=== PATIENT | male | born 1975 | race Caucasian/White ===

== ENCOUNTER 2016-06-04 18:12 | Emergency (ER) | payer OTHER ==
--- NOTE | 2016-06-04 20:03 | ERNOTE ---
ENT HPI Date of Service: 06/04/16 Time Seen by Provider: 06/04/16 20:01 Source: patient Exam Limitations: no limitations - Immun/Allergies/Home Medications Immunizations: IMMUNIZATION HX Immunizations Up to Date Yes History of Influenza Vaccine No Hx Pneumococcal Vaccination No Allergies/Adverse Reactions: Allergies Allergy/AdvReac Type Severity Reaction Status Date / Time erythromycin base Allergy Hives Verified 02/09/15 14:38 Home Medications: HOME MEDICATIONS NK [No Home Medication] 06/04/16 [Last Taken Unknown] - History of Present Illness Narrative: PT C/O HOARSENESS AND SORE THROAT. Review of Systems - Review of Systems Constitutional: Present: See HPI ENT: Present: nose congestion, sore throat, other - HOARSNESS. Respiratory: Present: cough Cardiology: Present: no symptoms reported Gastrointestinal/Abdominal: Present: no symptoms reported Genitourinary: Present: no symptoms reported Musculoskeletal: Present: no symptoms reported Neurological: Present: no symptoms reported Psych: Present: no symptoms reported All Other Systems: All systems neg except as marked - Patient's Past Medical History Patient History - Medical: Chronic Pain, Other Patient History - Cardiac/Respiratory: Hypertension Patient History - Cancer: No Hx of Cancer Patient History - Surgical Procedures: Appendectomy, T & A Patient History - Other: None - Family History Mother Family History - Cardiac/Respiratory: COPD - Social History Living Situations: home Psych History: Hx of Depression Smoking Status: Current every day smoker Patient requests Smoking Cessation Consult: No Initiate information on Smoking Cessation: No Alcohol Use: heavy Drug Use: other - Immunizations Immunizations Up to Date: Yes Hx Pneumococcal Vaccination: No History of Influenza Vaccine: No Physical Exam - Physical Exam General Appearance: Present: wd/wn, alert, no apparent distress - MODERATELY ELEVATED BP WHILE HERE IN THE ER. Ears, Nose, Throat: Present: nasal congestion, pharyngeal erythema, other - + POST NASAL DRAIANGE. . Absent: pharyngeal swelling, tonsillar exudate, tonsillar swelling Neck: Present: normal inspection Respiratory: Present: no respiratory distress, normal breath sounds, no accessory muscle use Cardiovascular/Chest: Present: regular rate, rhythm, no murmur, normal peripheral pulses Skin Exam: Present: normal color ED Progress - Results and Orders Patient's Lab Results:: I have reviewed the patient's lab results. Results and Orders: STREP SCREEN IS NEG. - Vital Signs Patient's Vital Signs:: I have reviewed the patient's vital signs. Vital Signs: Vital Signs 06/04/16 18:34 Temperature 37.2 C Pulse Rate 103 H Respiratory 18 Rate Blood Pressure 138/95 O2 Sat by Pulse 97 Oximetry PT SAYS HE IS AWARE OF A HISTORY OF HYPERTENSION AND HAS MADE ARRANGEMENTS TO SEE A PCP. - Progress/Reassessment Chief Complaint: Sore Throat Departure Clinical Impression: Sore throat and laryngitis - Departure Disposition: Home self-care Condition: Good Instructions: Adenovirus, Pharyngitis, [id number], Smoking Cessation, Tips for Success, [id number] Additional Instructions: RECHECK WITH YOUR DOCTOR OR RETURN IF WORSE
--- OUTSIDE RECORDS SUMMARY | 2016-06-04 20:28 | XMS REPORT | Continuity of Care Document ---
:1975 Author Organization [facility] ([facility]) Address [address] [place] [address] Phone [phone] Care Team Providers Name Role Phone Unavailable Primary Care Provider Unavailable Source Comments This disclosure is being made pursuant to the Care Everywhere program, applicable federal and state laws, and may not contain all informaitonavailable regarding this patient.[facility] ([facility]) Active Allergies and Adverse Reactions Not on File Current Medications Not on file Active Problems Not on file Social History Tobacco Use Types Packs/Day Years Used Date Never Assessed Plan of Care Health Maintenance Due Date Last Done Comments Hepatitis B Vaccine (1 of 3 - Primary Series) 1975 Tdap Vaccine 1984 Lipid Disorder Screening 11/10/1991 MMR Vaccine 11/10/1991 Td Vaccine 11/10/1991 Influenza Vaccine: Seasonal (#1) 09/09/2015 Results from Last 3 Months Not on file
[2016-06-04 20:40] VITALS: BP 160/89
== END 2016-06-04 20:26 | disposition home or self-care (01) ==
LOC: ER 18:12
DX: J02.9 Acute pharyngitis, unspecified (principal); J04.0 Acute laryngitis; Z72.0 Tobacco use

== ENCOUNTER 2016-07-19 10:39 | Inpatient (IN) | payer MEDICAID ==
--- OUTSIDE RECORDS SUMMARY | 2016-07-19 11:39 | XMS REPORT | Continuity of Care Document ---
:1975 Author Organization [facility] ([facility]) Address [address] [place] [address] Phone [phone] Care Team Providers Name Role Phone [phone], Need To Check Primary Care Provider Unavailable Source Comments This disclosure is being made pursuant to the Care Everywhere program, applicable federal and state laws, and may not contain all informaitonavailable regarding this patient.[facility] ([facility]) Active Allergies and Adverse Reactions Not on File Current Medications Not on file Active Problems Not on file Social History Tobacco Use Types Packs/Day Years Used Date Never Assessed Plan of Care Date Type Specialty Providers Description 07/30/2016 Appointment Dentistry [place] Ambrose, RED Chief Comp: Patient [address] [place] [address] [phone] (Fax) Health Maintenance Due Date Last Done Comments Hepatitis B Vaccine (1 of 3 - Primary Series) 1975 Tdap Vaccine 1984 Lipid Disorder Screening 11/10/1991 MMR Vaccine 11/10/1991 Td Vaccine 11/10/1991 Influenza Vaccine: Seasonal (Season Ended) 2016 Results from Last 3 Months Not on file
[2016-07-19] MEDS ORDERED: NORMAL SALINE 1,000 ML IV ONE ×2 (11:43→14:48)
[2016-07-19] MEDS ORDERED: DIATRIZOATE MEGLU/DIATRIZO SOD 30 ML BTL ONE (11:51)
[2016-07-19] MEDS ORDERED: DIATRIZOATE MEGLU/DIATRIZO SOD 30 ML BTL PO ONE (11:56)
--- NOTE | 2016-07-19 11:56 | ERNOTE ---
GI Bleeding/Rectal Pain ER Date of Service: 07/19/16 Presenting Symptoms: rectal bleeding Time Seen by Provider: 07/19/16 11:33 Source: patient Exam Limitations: no limitations Immunizations: IMMUNIZATION HX Immunizations Up to Date No History of Influenza Vaccine No Hx Pneumococcal Vaccination No Allergies/Adverse Reactions: Allergies erythromycin base Allergy (Verified 07/19/16 10:50) Hives Home Medications: HOME MEDICATIONS Acetaminophen [Tylenol] 500 mg PO PRN 07/19/16 [Last Taken Unknown] Gabapentin 300 mg PO TID 07/19/16 [Last Taken Unknown] Hydrochlorothiazide [Hydrodiuril] 25 mg PO DAILY 07/19/16 [Last Taken Unknown] traMADol HCL [Ultram] 100 mg PO TID 07/19/16 [Last Taken 07/19/16] Narrative: 40-year-old male presents to the emergency room after having bloody stools at home. describes them as red stool with blood clots in it. Patient is complaining of severe abdominal pain with cramping at this time. Patient states this started yesterday Date (Duration): 07/19/16 Timing: constant Quality/Severity: Present: moderate Nausea/Vomiting: Present: blood Abdominal Pain: Present: diffuse Rectal Bleeding: Present: blood mixed with stool, bloody diarrhea Associated Symptoms: Reports: maroon stools Prior Treament: Reports: other - hx of hemorrhoids Review of Systems - Review of Systems Constitutional: Present: no symptoms reported EYE: Present: no symptoms reported ENT: Present: no symptoms reported Respiratory: Present: no symptoms reported Cardiology: Present: no symptoms reported Gastrointestinal/Abdominal: Present: See HPI, abdominal pain Genitourinary: Present: no symptoms reported Musculoskeletal: Present: no symptoms reported Skin: Present: no symptoms reported Neurological: Present: no symptoms reported Endocrine: Present: no symptoms reported Hematologic/Lymphatic: Present: no symptoms reported Psych: Present: no symptoms reported All Other Systems: All systems neg except as marked - Patient's Past Medical History Patient History - Medical: Chronic Pain, Other Patient History - Cardiac/Respiratory: Hypertension Patient History - Cancer: No Hx of Cancer Patient History - Surgical Procedures: Appendectomy, T & A Patient History - Other: None - Family History Mother Family History - Cardiac/Respiratory: COPD - Social History Living Situations: home Psych History: Hx of Depression Smoking Status: Current every day smoker Alcohol Use: none Drug Use: none, other - Immunizations Immunizations Up to Date: No Hx Pneumococcal Vaccination: No History of Influenza Vaccine: No Physical Exam - Physical Exam Narrative: mirian blood in stool. abdomen is tender all over, patient c/o cramping RLQ. he does NOT have his appendix. General Appearance: Present: wd/wn, alert, mild distress. Absent: lethargic Eye Exam: Normal inspection: bilateral Ears, Nose, Throat: Present: normal ENT inspection, normal pharynx Neck: Present: normal inspection, nontender Respiratory: Present: no respiratory distress, normal breath sounds, no accessory muscle use, chest nontender, lungs clear Cardiovascular/Chest: Present: regular rate, rhythm, no murmur, normal peripheral pulses Gastrointestinal/Abdominal: Present: normal bowel sounds, nondistended, tenderness Rectal Exam: Present: nontender, normal rectal tone, hemorrhoids Back Exam: Present: normal inspection, decreased range of motion Extremity Exam: Present: normal inspection, non-tender, normal range of motion, no edema Neurological Exam: Present: alert, oriented, normal mood/affect, no motor/ sensory deficits Skin Exam: Present: normal color, warm/dry Lymphatic Exam: Present: no adenopathy ED Progress - Vital Signs Patient's Vital Signs:: I have reviewed the patient's vital signs. Vital Signs: Vital Signs 07/19/16 10:40 Temperature 37.0 C Pulse Rate 127 H Respiratory 18 Rate Blood Pressure 168/108 O2 Sat by Pulse 95 Oximetry - EKG EKG: NSR EKG read: Reviewed by me EKG Comments: interp by ED Attending - CT/Ultrasound CT/Ultrasound Narrative: [facility] PATIENT RADIOLOGY STUDY REPORT Patient Patient Name:LORE GOULD Date: 1975 Sex: M Order Number: [id number] Unique Exam ID: [id number] Exam Requested: ABDPELW - CT Abdomen/Pelvis W/ Contrast Date Scheduled: Study Priority: Requesting Service: Requesting Physician: Houston Malik Reason for Exam: gi bleed Radiological Report : Exam Date: 07/19/2016 11:46 Ordering Physician: Houston Malik HISTORY/INDICATION: gi bleed Additional history from technologist: Gastrointestinal bleeding since 6: 00 PM last night. Nausea and vomiting. TECHNIQUE: Contrast enhanced CT images of the abdomen during portal venous phase obtained. Excretory phase images of the abdomen and pelvis were also obtained. Coronal reconstructions were also submitted. Oral contrast material was given. COMPARISON: None available. CT Abdomen/Pelvis W/ Contrast ABDOMEN: Lungs: Mild dependent atelectasis present. Visualized portions of the heart grossly unremarkable. Liver: Somewhat low density appearance of the liver parenchyma suspicious but not definitive for fatty infiltration. Clinical correlation is advised. No focal mass or intrahepatic ductal dilation. Grossly normal opacification of the portal vein. Gallbladder: The gallbladder appears to be grossly unremarkable. Noncalcified gallstones would be difficult to exclude, and an ultrasound of the gallbladder should be considered if there is a concern for cholecystitis or biliary colic. Pancreas: The pancreas appears to be normal in appearance. Spleen: The spleen is unremarkable. Adrenal glands: Unremarkable without focal finding. Kidneys: Normal appearance without focal mass or hydronephrosis. Aorta: Mild calcified atherosclerotic plaques noted. Diameter of the infrarenal segment at the level of the inferior mesenteric artery origin is 1.7 cm. Retroperitoneum: No pathologic size lymphadenopathy or mass within the retroperitoneum is seen. Stomach: Partially opacified stomach grossly unremarkable. There is likely ingested food debris within the stomach. Small bowel: Unremarkable, without signs of obstruction, bowel wall thickening, or mesenteric inflammatory changes. Colon: There is contiguous bowel wall thickening of the distal colon from the level of the splenic flexure all the way down to the rectum to include the descending and sigmoid colonic segments, with adjacent inflammatory changes, and mural enhancement. There is no evidence for pneumatosis or extraluminal air. The proximal colonic segments are not affected. Appendix is surgically absent. Abdominal wall: Unremarkable without focal mass or hernia. No evidence for intraperitoneal free air. PELVIS: There is diffuse urinary bladder wall thickening, which may be artifactual from nondistention but consider cystitis. There is no definite focal filling defect at the base of the bladder filled with contrast. No definite signs of pelvic lymphadenopathy or masses are noted. No evidence of free pelvic fluid noted. Bones: Osseous structures appear intact without obvious destructive changes. Degenerative changes of the spine noted. IMPRESSION: 1. Contiguous circumferential bowel wall thickening of the distal segments of the colon as discussed above from the splenic flexure down to the rectum. Differential diagnosis includes colitis to include infection versus inflammatory bowel disease. Also consider ischemic colitis. Superimposed colonic mass would be difficult to exclude. Consider further evaluation of the colon when the patient's acute symptoms have resolved. 2. No CT signs of perforation, abscess, or other complications. 3. Additional comments are as above. Electronically signed by Lucy Shankar M.D.. Approved by: Approval Date: 07-19-2016 Approval Time: 01:48 PM THIS REPORT WAS RECEIVED FROM THE [employer] SYSTEM - Progress/Reassessment Chief Complaint: Rectal Bleeding Plan - Plan Plan: After speaking with Corbin and he suggested the patient be admitted and he will see him tomorrow Departure Clinical Impression: GI bleeding Qualifiers: GI bleed type/associated pathology: unspecified gastrointestinal hemorrhage type Qualified Code(s): K92.2 - Gastrointestinal hemorrhage, unspecified - Departure Disposition: [facility] Condition: Fair
[2016-07-19 11:59] LABS: Urine Appearance Clear; Urine Bilirubin Negative (NEGATIVE); Urine Blood 25 /ul (NEGATIVE); Urine Color Yellow; Urine Ketone Negative (NEGATIVE); Urine Nitrite Negative (NEGATIVE); Urine Protein 15 mg/dL (NEGATIVE); Urine Specific Gravity 1.025 SP.GR. (1.005-1.030); Urine Urobilinogen Normal (NORMAL)
[2016-07-19 12:00] LABS: Urine Bacteria None Seen; Urine RBC 0-5 /hpf (0-5); Urine WBC None Seen /hpf (0-5)
[2016-07-19 12:05] LABS: Hemoglobin 16.3 gm/dL (13.5-18.0); Mean Cell Volume 84.6 fl (78-100); Mean Corpuscular Hgb Conc 35.4 g/dl (32-36); Mean Platelet Volume 10.5 fl (6.0-9.5); Neutrophil # 14.3 K/mm3 (1.3-6.0); Neutrophil % 83.4 % (42-75.0); Platelet Count 291 K/mm3 (150-450); Red Blood Count 5.44 M/mm3 (4.7-6.0); Red Cell Distribution Width 12.4 % (11.5-14.0); White Blood Count 17.2 K/mm3 (4.0-10.5)
[2016-07-19 12:17] LABS: Albumin * 3.6 gm/dl (3.4-5.0); Anion Gap 11.5 mmol/L (6.8-13.8); BUN/Creatinine Ratio 5.1 (9.0-21.6); Bilirubin, Total 0.5 mg/dL (0.0-1.1); Ca. Corrected For Albumin 9.9 mg/dL (8.4-10.2); Calcium * 9.9 mg/dL (7.9-10.9); Carbon Dioxide 34.4 mmol/L (24-32.6); Potassium 2.9 mmol/L (3.4-4.6); Total Protein 7.7 gm/dL (6.2-8.2)
[2016-07-19 12:19] LABS: Prothrombin Time (Patient) 10.7 Seconds (9.4-11.4)
[2016-07-19 12:20] LABS: INR 1.03 INR (0.90-1.10); Partial Thrombolplastin Time 28.9 Seconds (24-32)
[2016-07-19] MEDS: POTASSIUM CHLORIDE 100 ML IV SCH ×2 (13:11→17:46)
[2016-07-19] MEDS ORDERED: GABAPENTIN 100 MG CAPSULE PO ONE (14:35)
[2016-07-19] MEDS ORDERED: HYDROcodone/ACETAMINOPHEN 1 EACH TABLET ONE (14:45)
--- OUTSIDE RECORDS SUMMARY | 2016-07-19 14:46 | XMS REPORT | Continuity of Care Document ---
:1975 Author Organization [facility] ([facility]) Address [place] [address] Phone [phone] Care Team Providers Name Role Phone [phone], Need To Check Primary Care Provider Unavailable Source Comments This disclosure is being made pursuant to the Care Everywhere program, applicable federal and state laws, and may not contain all informaitonavailable regarding this patient.[facility] ([facility]) Active Allergies and Adverse Reactions Not on File Current Medications Not on file Active Problems Not on file Social History Tobacco Use Types Packs/Day Years Used Date Never Assessed Plan of Care Date Type Specialty Providers Description 07/30/2016 Appointment Dentistry [place] Ambrose, RED Chief Comp: Patient [address] [place] [address] [phone] (Fax) Health Maintenance Due Date Last Done Comments Hepatitis B Vaccine (1 of 3 - Primary Series) 1975 Tdap Vaccine 1984 Lipid Disorder Screening 11/10/1991 MMR Vaccine 11/10/1991 Td Vaccine 11/10/1991 Influenza Vaccine: Seasonal (Season Ended) 2016 Results from Last 3 Months Not on file
[2016-07-19] MEDS: HYDROcodone/ACETAMINOPHEN 1 EACH TABLET PO PRN ×2 (14:48→21:41)
[2016-07-19] MEDS ORDERED: GABAPENTIN 400 MG CAPSULE PO STA (14:50)
[2016-07-19] MEDS: POTASSIUM CHLORIDE 40 MEQ in DEXTROSE 5%-LACTATED RINGERS 1,000 ML IV SCH (15:39)
[2016-07-19] MEDS: metroNIDAZOLE 500 MG TABLET PO SCH ×2 (15:43→22:52)
[2016-07-19] MEDS: NICOTINE 21 MG PATC TD SCH (16:01)
[2016-07-19] MEDS ORDERED: GABAPENTIN 600 MG TABLET PO SCH (17:00)
[2016-07-19] MEDS: GABAPENTIN 400 MG CAPSULE PO SCH ×2 (18:47→21:41)
[2016-07-19] MEDS ORDERED: LORazepam 2 MG/ML DISP.SYRIN IV ONE (20:42)
[2016-07-19] MEDS ORDERED: MULTIVIT INFUSN,ADULT 4,VIT K 10 ML, THIAMINE HCL 100 MG in NORMAL SALINE 1,000 ML IV ONE (20:44)
[2016-07-19] MEDS ORDERED: LORazepam 2 MG/ML DISP.SYRIN IV PRN ×3 (20:44)
[2016-07-19] MEDS ORDERED: ENOXAPARIN SODIUM 40 MG/0.4 ML SYRG SC SCH (20:45)
[2016-07-19 21:06] LABS: Magnesium 1.8 mg/dL (1.2-2.8)
[2016-07-19] MEDS: MULTIVITAMINS 1 CAP CAPSULE PO SCH (21:38)
[2016-07-19] MEDS: THIAMINE HCL 100 MG TABLET PO SCH (21:38)
[2016-07-19] MEDS: FOLIC ACID 1 MG TABLET PO SCH (21:39)
[2016-07-19] MEDS: PANTOPRAZOLE SODIUM 40 MG in NORMAL SALINE 100 ML IV SCH (21:39)
[2016-07-19] MEDS: CIPROFLOXACIN HCL 500 MG TABLET PO SCH (21:40)
[2016-07-19 22:07] LABS: Cocaine Ur Negative (NEGATIVE); Urine Barbiturate Negative (NEGATIVE); Urine Benzodiazepines Negative (NEGATIVE); Urine Opiates Positive (NEGATIVE); Urine PCP Negative (NEGATIVE); Urine THC Negative (NEGATIVE)
--- NOTE | 2016-07-19 22:36 | HP ---
<Christelle Kenny - Last Filed: 07/19/16 23:39> Chief Complaint - Chief Complaint Date of Service: 07/19/16 Time of Service: 20:35 Chief Complaint: abdominal pain, rectal bleeding History of Present Illness: Artur is a 40 year old male patient of Dr. Merritt with a PMH of HTN who presented to the ER today with c/o abdominal pain and rectal bleeding. States that over the last 24 over he developed lower abdominal pain. no n/v. no fever. went to the bathroom today and, per pt, had a significantly large bowel movement that was very hard. No blood with hard, large bowel movement. After this bowel movement, pt developed diarrhea with bright red blood in the stool that contained clots. Patient also states he had one stool since admission that was black and tarry. Patient admits to 3-4 beers a day, last drink was 3-4 days ago per his recollection. Also with history chronic back pain for which he takes ultram 1 tab [address] of the abdomen / pelvis showed possible colitis with no abscess or perforation. Patient to be admitted for abdominal pain, GI bleed. Dr. Murphy has been consulted by ERP prior to admission. - Patient's Past Medical History Patient History - Medical: Chronic Pain, Other Patient History - Cardiac/Respiratory: Hypertension Patient History - Cancer: No Hx of Cancer Patient History - Surgical Procedures: Appendectomy, T & A Patient History - Other: None - Family History Mother Family History - Cardiac/Respiratory: COPD Father Family History - Medical: Family History - Cancer: Liver, Prostate - Social History Living Situations: home Abuse History: No History of abuse Psych History: Hx of Depression Smoking Status: Current every day smoker Have you smoked in the past 12 months: Yes Do you dip or chew tobacco: No Patient requests Smoking Cessation Consult: No Initiate information on Smoking Cessation: Yes Alcohol Use: heavy Drug Use: none, other - Immunizations Immunizations Up to Date: No Hx Pneumococcal Vaccination: No History of Influenza Vaccine: No Review Of Systems (GEN) - Review of Systems Generalized/Overall Review: Present: Malaise EENTM: Present: No Symptoms Reported Respiratory: Present: No Symptoms Reported Cardiac: Present: No Symptoms Reported Abdominal: Present: Abdominal Pain, Diarrhea, Bright blood from rectum Genitourinary: Present: No Symptoms Reported Musculoskeletal: Present: No Symptoms Reported Neurological: Present: No Symptoms Reported Skin: Present: No Symptoms Reported Endocrine: Present: No Symptoms Reported Misc: All systems neg except as marked Immunizations: IMMUNIZATION HX Immunizations Up to Date No History of Influenza Vaccine No Hx Pneumococcal Vaccination No Allergies/Adverse Reactions: Allergies Allergy/AdvReac Type Severity Reaction Status Date / Time erythromycin base Allergy Hives Verified 07/19/16 15:56 Home Medications: HOME MEDICATIONS Acetaminophen [Tylenol] 500 mg PO PRN 07/19/16 [Last Taken Unknown] Gabapentin 300 mg PO TID 07/19/16 [Last Taken Unknown] Hydrochlorothiazide [Hydrodiuril] 25 mg PO DAILY 07/19/16 [Last Taken Unknown] traMADol HCL [Ultram] 100 mg PO TID 07/19/16 [Last Taken 07/19/16] Exam - Exam Vital Signs: Vital Signs - Last Taken Temp 37.1 C 07/19/16 21:31 Pulse 93 07/19/16 21:31 Resp 16 07/19/16 21:31 BP 163/112 07/19/16 21:31 Pulse Ox 94 07/19/16 21:31 Constitutional: Present: Alert, Cooperative, No distress ENT Exam: Present: hearing grossly normal Eye Exam: bilateral eye: normal inspection Neck: Present: full range of motion, supple Back Exam: Present: no vertebral tenderness Breasts: Present: Exam deferred Respiratory: Present: chest non-tender, lungs clear, normal breath sounds, no respiratory distress Cardiovascular/Chest: Present: normal peripheral pulses, regular rate, rhythm, no chest tenderness Peripheral Pulses: dorsalis-pedis (R): 2+, dorsalis-pedis (L): 2+, radial (R): 2 +, radial (L): 2+ Abdomen: Present: soft, nondistended, tender, high pitched bowel sounds /Rectal: Present: Exam deferred Extremity: Present: non-tender, normal inspection Skin Exam: Present: normal color, warm/dry, no cyanosis Diagnostic Studies: Abnormal Lab Results 07/19/16 Range/Units 21:50 Urine Opiates Screen Positive H (NEGATIVE) Laboratory Results WBC 17.2 K/mm3 (4.0-10.5) H 07/19/16 11:53 RBC 5.44 M/mm3 (4.7-6.0) 07/19/16 11:53 Hgb 16.3 gm/dL (13.5-18.0) 07/19/16 11:53 Hct 46.0 % (42.0-52.0) 07/19/16 11:53 MCV 84.6 fl (78-100) 07/19/16 11:53 MCH 30.0 pg (27-31) 07/19/16 11:53 MCHC 35.4 g/dl (32-36) 07/19/16 11:53 RDW 12.4 % (11.5-14.0) 07/19/16 11:53 Plt Count 291 K/mm3 (150-450) 07/19/16 11:53 MPV 10.5 fl (6.0-9.5) H 07/19/16 11:53 Immature Gran % (Auto) 0.60 % (0.001-0.429) H 07/19/16 11:53 Immature Gran # (Auto) 0.10 K/mm3 (0.000-0.0310) H 07/19/16 11:53 Neutrophils % 83.4 % (42-75.0) H 07/19/16 11:53 Lymphocytes % 10.5 % (20-51) L 07/19/16 11:53 Monocytes % 5.1 % (0.0-9) 07/19/16 11:53 Eosinophils % 0.2 % (0.0-3.0) 07/19/16 11:53 Basophils % 0.2 % (0.0-1.0) 07/19/16 11:53 Nucleated RBC % 0.0 k/mm3 (0-1) 07/19/16 11:53 Neutrophils # 14.3 K/mm3 (1.3-6.0) H 07/19/16 11:53 Lymphocytes # 1.8 k/mm3 (1.5-3.5) 07/19/16 11:53 Monocytes # 0.9 k/mm3 (0.0-1.0) 07/19/16 11:53 Eosinophils # 0.0 k/mm3 (0.0-0.7) 07/19/16 11:53 Absolute Basophils 0.0 k/mm3 (0.0-0.1) 07/19/16 11:53 ESR 17 mm/hr (0-10) H 07/19/16 11:53 PT 10.7 Seconds (9.4-11.4) 07/19/16 11:53 INR (Anticoag Therapy) 1.03 INR (0.90-1.10) 07/19/16 11:53 PTT ([place]) 28.9 Seconds (24-32) 07/19/16 11:53 Sodium 140 mmol/L (132-142) 07/19/16 11:53 Plasma Sodium 141 mmol/L (130-142) 07/19/16 11:53 Potassium 2.9 mmol/L (3.4-4.6) L D 07/19/16 11:53 Chloride 97 mmol/L (97-106) 07/19/16 11:53 Carbon Dioxide 34.4 mmol/L (24-32.6) H 07/19/16 11:53 Anion Gap 11.5 mmol/L (6.8-13.8) 07/19/16 11:53 BUN 5 mg/dL (6-23) L 07/19/16 11:53 Creatinine 0.98 mg/dL (0.4-1.4) 07/19/16 11:53 Est GFR (Non-Af Amer) 89 mL/min (60-130) 07/19/16 11:53 BUN/Creatinine Ratio 5.1 (9.0-21.6) L 07/19/16 11:53 Random Glucose 142 mg/dL (70-110) H 07/19/16 11:53 Lactic Acid, Venous 1.5 mmol/L (0.4-1.9) 07/19/16 14:44 Calcium 9.9 mg/dL (7.9-10.9) 07/19/16 11:53 Calcium Adj for Albumin 9.9 mg/dL (8.4-10.2) 07/19/16 11:53 Magnesium 1.8 mg/dL (1.2-2.8) 07/19/16 12:37 Total Bilirubin 0.5 mg/dL (0.0-1.1) 07/19/16 11:53 AST 16 U/L (0-48) 07/19/16 11:53 ALT 20 U/L (19-67) 07/19/16 11:53 Alkaline Phosphatase 95 U/L (50-170) 07/19/16 11:53 C-Reactive Prot, Quant 3.4 mg/dL (0.0-0.9) H 07/19/16 11:53 Total Protein 7.7 gm/dL (6.2-8.2) 07/19/16 11:53 Albumin 3.6 gm/dl (3.4-5.0) 07/19/16 11:53 Procalcitonin 0.11 ng/mL (0.05-0.50) 07/19/16 11:53 Urine Color Yellow 07/19/16 11:36 Urine Appearance Clear 07/19/16 11:36 Urine pH 6.0 pH (5.0-7.0) 07/19/16 11:36 Ur Specific [place] 1.025 SP.GR. (1.005-1.030) 07/19/16 11:36 Urine Protein 15 mg/dL (NEGATIVE) H 07/19/16 11:36 Urine Glucose (UA) Negative mg/dL (NEGATIVE) 07/19/16 11:36 Urine Ketones Negative mg/dL (NEGATIVE) 07/19/16 11:36 Urine Blood 25 /ul (NEGATIVE) H 07/19/16 11:36 Urine Nitrate Negative (NEGATIVE) 07/19/16 11:36 Urine Bilirubin Negative mg/dl (NEGATIVE) 07/19/16 11:36 Prot Sulfosalicylic Acd 1+ mg/dL (0) 07/19/16 11:36 Urine Urobilinogen Normal EU/dl (NORMAL) 07/19/16 11:36 Ur Leukocyte Esterase Negative /ul (NEGATIVE) 07/19/16 11:36 Urine RBC 0-5 /hpf (0-5) 07/19/16 11:36 Urine WBC None seen /hpf (0-5) 07/19/16 11:36 Ur Epithelial Cells None seen /hpf (0-5) 07/19/16 11:36 Urine Bacteria None seen (NONE) 07/19/16 11:36 Urine Culture Comments No culture indicated 07/19/16 11:36 Stool Occult Blood Positive H 07/19/16 11:30 Stl C.difficile Tox A&B Negative (Negative) 07/19/16 Unknown Urine Opiates Screen Positive (NEGATIVE) H 07/19/16 21:50 Barbiturate Screen Negative (NEGATIVE) 07/19/16 21:50 Ur Phencyclidine Scrn Negative (NEGATIVE) 07/19/16 21:50 Urine Amphetamine Negative (NEGATIVE) 07/19/16 21:50 U Benzodiazepines Scrn Negative (NEGATIVE) 07/19/16 21:50 Urine Cocaine Screen Negative (NEGATIVE) 07/19/16 21:50 Urine Marijuana (THC) Negative (NEGATIVE) 07/19/16 21:50 Ethyl Alcohol Less than 3.0 mg/dL (0.0-10.0) 07/19/16 12:37 Blood Type O Positive 07/19/16 11:53 Antibody Screen Negative 07/19/16 11:53 Assessment/Plan - Narrative Narrative: GI bleed - patient states started as right red blood with clots but now states one episode of black tarry stool when admitted - NPO with ice chips - protonix iv q 12 hours - Dr. Bray has been consulted, appreciate his help. - further recommends per surgery - recheck hgb/hct - risk factors include chronic etoh and ultram use Abdominal pain - likely from GI bleed vs possible colitis seen on abdominal CT - Cipro 500 mg PO BID - Day #1 - Flagyl 500 mg PO TID - Day #1 - hemoccult positive etoh abuse - last drink, per pt, was 3-4 days ago - seizure precautions - etoh withdrawl protocol ordered. - banana bag ordered. Chronic back pain - stop ultram, norco ordered - increase gabapentin dose. Code status: DNR VTE: no pharmalogical due to gi bleed; scd's while in bed. GI Proph: protonix iv. - Assessment/Plan (1) Abdominal pain Problem: Acute QualifierTitle: Abdominal location: lower abdomen, unspecified Qualified Code(s): R10.30 - Lower abdominal pain, unspecified (2) GI bleed Problem: Acute QualifierTitle: GI bleed type/associated pathology: unspecified gastrointestinal hemorrhage type Qualified Code(s): K92.2 - Gastrointestinal hemorrhage, unspecified (3) HTN (hypertension) Problem: Chronic QualifierTitle: Hypertension type: essential hypertension Qualified Code( s): I10 - Essential (primary) hypertension (4) ETOH abuse Problem: Chronic (5) Chronic back pain Problem: Chronic <Mookie Grimm - Last Filed: 07/20/16 08:32> Immunizations: IMMUNIZATION HX Immunizations Up to Date No History of Influenza Vaccine No Hx Pneumococcal Vaccination No Exam - Exam Vital Signs: Vital Signs - Last Taken Temp 37.1 C 07/20/16 07:41 Pulse 83 07/20/16 07:41 Resp 16 07/20/16 07:41 BP 150/96 07/20/16 07:41 Pulse Ox 94 07/20/16 07:41 Diagnostic Studies: Abnormal Lab Results 07/19/16 07/19/16 07/20/16 Range/Units 21:50 23:55 05:45 WBC 15.4 H (4.0-10.5) K/mm3 Hct 41.1 L 40.7 L (42.0-52.0) % MPV 10.4 H (6.0-9.5) fl Immature Gran % (Auto) 0.50 H (0.001-0.429) % Immature Gran # (Auto) 0.08 H (0.000-0.0310) K/mm3 Lymphocytes % 16.6 L (20-51) % Neutrophils # 11.6 H (1.3-6.0) K/mm3 Monocytes # 1.1 H (0.0-1.0) k/mm3 Sodium (132-142) mmol/L Plasma Sodium (130-142) mmol/L Potassium (3.4-4.6) mmol/L BUN (6-23) mg/dL BUN/Creatinine Ratio (9.0-21.6) ALT (19-67) U/L Albumin (3.4-5.0) gm/dl Urine Opiates Screen Positive H (NEGATIVE) 07/20/16 Range/Units 05:45 WBC (4.0-10.5) K/mm3 Hct (42.0-52.0) % MPV (6.0-9.5) fl Immature Gran % (Auto) (0.001-0.429) % Immature Gran # (Auto) (0.000-0.0310) K/mm3 Lymphocytes % (20-51) % Neutrophils # (1.3-6.0) K/mm3 Monocytes # (0.0-1.0) k/mm3 Sodium 143 H (132-142) mmol/L Plasma Sodium 143 H (130-142) mmol/L Potassium 3.0 L (3.4-4.6) mmol/L BUN 4 L (6-23) mg/dL BUN/Creatinine Ratio 4.7 L (9.0-21.6) ALT 16 L (19-67) U/L Albumin 2.8 L (3.4-5.0) gm/dl Urine Opiates Screen (NEGATIVE) Laboratory Results WBC 15.4 K/mm3 (4.0-10.5) H 07/20/16 05:45 RBC 4.71 M/mm3 (4.7-6.0) 07/20/16 05:45 Hgb 14.1 gm/dL (13.5-18.0) 07/20/16 05:45 Hct 40.7 % (42.0-52.0) L 07/20/16 05:45 MCV 86.4 fl (78-100) 07/20/16 05:45 MCH 29.9 pg (27-31) 07/20/16 05:45 MCHC 34.6 g/dl (32-36) 07/20/16 05:45 RDW 12.4 % (11.5-14.0) 07/20/16 05:45 Plt Count 258 K/mm3 (150-450) 07/20/16 05:45 MPV 10.4 fl (6.0-9.5) H 07/20/16 05:45 Immature Gran % (Auto) 0.50 % (0.001-0.429) H 07/20/16 05:45 Immature Gran # (Auto) 0.08 K/mm3 (0.000-0.0310) H 07/20/16 05:45 Neutrophils % 75.0 % (42-75.0) 07/20/16 05:45 Lymphocytes % 16.6 % (20-51) L 07/20/16 05:45 Monocytes % 7.0 % (0.0-9) 07/20/16 05:45 Eosinophils % 0.6 % (0.0-3.0) 07/20/16 05:45 Basophils % 0.3 % (0.0-1.0) 07/20/16 05:45 Nucleated RBC % 0.0 k/mm3 (0-1) 07/20/16 05:45 Neutrophils # 11.6 K/mm3 (1.3-6.0) H 07/20/16 05:45 Lymphocytes # 2.6 k/mm3 (1.5-3.5) 07/20/16 05:45 Monocytes # 1.1 k/mm3 (0.0-1.0) H 07/20/16 05:45 Eosinophils # 0.1 k/mm3 (0.0-0.7) 07/20/16 05:45 Absolute Basophils 0.0 k/mm3 (0.0-0.1) 07/20/16 05:45 ESR 17 mm/hr (0-10) H 07/19/16 11:53 PT 10.7 Seconds (9.4-11.4) 07/19/16 11:53 INR (Anticoag Therapy) 1.03 INR (0.90-1.10) 07/19/16 11:53 PTT ([place]elley) 28.9 Seconds (24-32) 07/19/16 11:53 Sodium 143 mmol/L (132-142) H 07/20/16 05:45 Plasma Sodium 143 mmol/L (130-142) H 07/20/16 05:45 Potassium 3.0 mmol/L (3.4-4.6) L 07/20/16 05:45 Chloride 105 mmol/L (97-106) 07/20/16 05:45 Carbon Dioxide 31.6 mmol/L (24-32.6) 07/20/16 05:45 Anion Gap 9.4 mmol/L (6.8-13.8) 07/20/16 05:45 BUN 4 mg/dL (6-23) L 07/20/16 05:45 Creatinine 0.85 mg/dL (0.4-1.4) 07/20/16 05:45 Est GFR (Non-Af Amer) 105 mL/min (60-130) 07/20/16 05:45 BUN/Creatinine Ratio 4.7 (9.0-21.6) L 07/20/16 05:45 Random Glucose 108 mg/dL (70-110) 07/20/16 05:45 Lactic Acid, Venous 1.5 mmol/L (0.4-1.9) 07/19/16 14:44 Calcium 8.9 mg/dL (7.9-10.9) 07/20/16 05:45 Calcium Adj for Albumin 9.5 mg/dL (8.4-10.2) 07/20/16 05:45 Magnesium 1.8 mg/dL (1.2-2.8) 07/19/16 12:37 Total Bilirubin 0.5 mg/dL (0.0-1.1) 07/20/16 05:45 AST 19 U/L (0-48) 07/20/16 05:45 ALT 16 U/L (19-67) L 07/20/16 05:45 Alkaline Phosphatase 72 U/L (50-170) 07/20/16 05:45 C-Reactive Prot, Quant 3.4 mg/dL (0.0-0.9) H 07/19/16 11:53 Total Protein 6.2 gm/dL (6.2-8.2) 07/20/16 05:45 Albumin 2.8 gm/dl (3.4-5.0) L 07/20/16 05:45 Procalcitonin 0.11 ng/mL (0.05-0.50) 07/19/16 11:53 Urine Color Yellow 07/19/16 11:36 Urine Appearance Clear 07/19/16 11:36 Urine pH 6.0 pH (5.0-7.0) 07/19/16 11:36 Ur Specific [place] 1.025 SP.GR. (1.005-1.030) 07/19/16 11:36 Urine Protein 15 mg/dL (NEGATIVE) H 07/19/16 11:36 Urine Glucose (UA) Negative mg/dL (NEGATIVE) 07/19/16 11:36 Urine Ketones Negative mg/dL (NEGATIVE) 07/19/16 11:36 Urine Blood 25 /ul (NEGATIVE) H 07/19/16 11:36 Urine Nitrate Negative (NEGATIVE) 07/19/16 11:36 Urine Bilirubin Negative mg/dl (NEGATIVE) 07/19/16 11:36 Prot Sulfosalicylic Acd 1+ mg/dL (0) 07/19/16 11:36 Urine Urobilinogen Normal EU/dl (NORMAL) 07/19/16 11:36 Ur Leukocyte Esterase Negative /ul (NEGATIVE) 07/19/16 11:36 Urine RBC 0-5 /hpf (0-5) 07/19/16 11:36 Urine WBC None seen /hpf (0-5) 07/19/16 11:36 Ur Epithelial Cells None seen /hpf (0-5) 07/19/16 11:36 Urine Bacteria None seen (NONE) 07/19/16 11:36 Urine Culture Comments No culture indicated 07/19/16 11:36 Stool Occult Blood Positive H 07/19/16 11:30 Stl C.difficile Tox A&B Negative (Negative) 07/19/16 Unknown Urine Opiates Screen Positive (NEGATIVE) H 07/19/16 21:50 Barbiturate Screen Negative (NEGATIVE) 07/19/16 21:50 Ur Phencyclidine Scrn Negative (NEGATIVE) 07/19/16 21:50 Urine Amphetamine Negative (NEGATIVE) 07/19/16 21:50 U Benzodiazepines Scrn Negative (NEGATIVE) 07/19/16 21:50 Urine Cocaine Screen Negative (NEGATIVE) 07/19/16 21:50 Urine Marijuana (THC) Negative (NEGATIVE) 07/19/16 21:50 Ethyl Alcohol Less than 3.0 mg/dL (0.0-10.0) 07/19/16 12:37 Blood Type O Positive 07/19/16 11:53 Antibody Screen Negative 07/19/16 11:53 Assessment/Plan - Narrative Narrative: There are a variety of possible etieologies for his gi bleeding, including his alcohol use or his ultram. He feels somewhat better today. There are NO contraindications to colonoscopy with biopsy. I directly supervised our nurse practitioner hospitalist care for this patient.
[2016-07-19 23:59] LABS: Hematocrit 41.1 % (42.0-52.0); Hemoglobin 14.4 gm/dL (13.5-18.0)
[2016-07-20] MEDS: HYDROcodone/ACETAMINOPHEN 1 EACH TABLET PO PRN ×3 (03:42→19:04)
[2016-07-20 05:57] LABS: Hematocrit 40.7 % (42.0-52.0); Hemoglobin 14.1 gm/dL (13.5-18.0); Mean Cell Volume 86.4 fl (78-100); Mean Corpuscular Hemoglobin 29.9 pg (27-31); Mean Corpuscular Hgb Conc 34.6 g/dl (32-36); Mean Platelet Volume 10.4 fl (6.0-9.5); Neutrophil # 11.6 K/mm3 (1.3-6.0); Platelet Count 258 K/mm3 (150-450); Red Blood Count 4.71 M/mm3 (4.7-6.0); Red Cell Distribution Width 12.4 % (11.5-14.0); White Blood Count 15.4 K/mm3 (4.0-10.5)
[2016-07-20 06:13] LABS: Albumin * 2.8 gm/dl (3.4-5.0); Anion Gap 9.4 mmol/L (6.8-13.8); BUN/Creatinine Ratio 4.7 (9.0-21.6); Bilirubin, Total 0.5 mg/dL (0.0-1.1); Ca. Corrected For Albumin 9.5 mg/dL (8.4-10.2); Calcium * 8.9 mg/dL (7.9-10.9); Carbon Dioxide 31.6 mmol/L (24-32.6); Total Protein 6.2 gm/dL (6.2-8.2)
[2016-07-20] MEDS: POTASSIUM CHLORIDE 40 MEQ in DEXTROSE 5%-LACTATED RINGERS 1,000 ML IV SCH ×4 (06:37→21:51)
[2016-07-20] MEDS: ACETAMINOPHEN 325 MG TABLET PO PRN ×3 (07:42→21:14)
[2016-07-20] MEDS: metroNIDAZOLE 500 MG TABLET PO SCH ×3 (07:43→22:55)
[2016-07-20] MEDS: POTASSIUM CHLORIDE 20 MEQ TABLET.SA PO SCH ×2 (09:41→21:15)
[2016-07-20] MEDS: FOLIC ACID 1 MG TABLET PO SCH (09:41)
[2016-07-20] MEDS: MULTIVITAMINS 1 CAP CAPSULE PO SCH (09:41)
[2016-07-20] MEDS: MAGNESIUM OXIDE 400 MG TABLET PO SCH (09:41)
[2016-07-20] MEDS: GABAPENTIN 400 MG CAPSULE PO SCH ×4 (09:41→21:13)
[2016-07-20] MEDS: CIPROFLOXACIN HCL 500 MG TABLET PO SCH ×2 (09:41→21:15)
[2016-07-20] MEDS: THIAMINE HCL 100 MG TABLET PO SCH (09:42)
[2016-07-20] MEDS: PANTOPRAZOLE SODIUM 40 MG in NORMAL SALINE 100 ML IV SCH ×2 (10:50→21:13)
--- NOTE | 2016-07-20 11:55 | CONS ---
HPI - General Source: patient, RN/MD, old records - History of Present Illness Initial Comments: Pt presented yesterday with c/o bloody bowel movements and lower abdominal pain. He continues to have bloody bowel movements today. WBC is elevated. CT shows bowel thickening from rectum to splenic flexure. He continues to have lower abdominal pain, mostly in the LLQ. Allergies/Adverse Reactions: Allergies erythromycin base Allergy (Verified 07/19/16 15:56) Hives Home Medications: Home Medications Medication Instructions Recorded Last Taken Acetaminophen [Tylenol] 500 mg PO PRN 07/19/16 Unknown Gabapentin 300 mg PO TID 07/19/16 Unknown Hydrochlorothiazide [Hydrodiuril] 25 mg PO DAILY 07/19/16 Unknown traMADol HCL [Ultram] 100 mg PO TID 07/19/16 07/19/16 - Patient's Past Medical History Patient History - Medical: Chronic Pain, Other Patient History - Cardiac/Respiratory: Hypertension Patient History - Cancer: No Hx of Cancer Patient History - Surgical Procedures: Appendectomy, T & A Patient History - Other: None - Family History Mother Family History - Cardiac/Respiratory: COPD Father Family History - Medical: Family History - Cancer: Liver, Prostate - Social History Living Situations: home Abuse History: No History of abuse Psych History: Hx of Depression Smoking Status: Current every day smoker Have you smoked in the past 12 months: Yes Do you dip or chew tobacco: No Patient requests Smoking Cessation Consult: No Initiate information on Smoking Cessation: Yes Alcohol Use: heavy Drug Use: none, other - Immunizations Immunizations Up to Date: No Hx Pneumococcal Vaccination: No History of Influenza Vaccine: No Procedures CLOSURE SKIN & SUBCUTANEOUS NEC (10/10/01) Medications - Medications Current Medications: Current Medications Acetaminophen (Tylenol) 650 mg PO QID PRN PRN Reason: Mild Pain Stop: 08/19/16 07:24 Last Admin: 07/20/16 07:42 Dose: 650 mg Acetaminophen/Hydrocodone Bitart ([place] 5-325) 2 each PO QID PRN PRN Reason: Pain Stop: 08/18/16 14:36 Last Admin: 07/20/16 10:49 Dose: 2 each Ciprofloxacin (Cipro) 500 mg PO BID CITLALI PRN Reason: Protocol Stop: 08/18/16 21:01 Last Admin: 07/20/16 09:41 Dose: 500 mg Folic Acid (Folic Acid) 1 mg PO DAILY [facility] Stop: 08/18/16 20:46 Last Admin: 07/20/16 09:41 Dose: 1 mg Gabapentin (Neurontin) 800 mg PO QID [facility] Stop: 08/18/16 17:01 Last Admin: 07/20/16 09:41 Dose: 800 mg Potassium Chloride 40 meq/ (Dextrose/Lactated Ringer's) 1,020 mls @ 150 mls/hr IV .Q6H48M [facility] Stop: 08/18/16 15:16 Last Admin: 07/20/16 10:52 Dose: Not Given Pantoprazole Sodium 40 mg/ (Sodium Chloride) 100 mls @ 400 mls/hr IV Q12H [facility] Stop: 08/18/16 20:46 Last Admin: 07/20/16 10:50 Dose: 400 mls/hr Magnesium Oxide (Mag-Ox 400) 400 mg PO DAILY [facility] Stop: 08/19/16 09:01 Last Admin: 07/20/16 09:41 Dose: 400 mg Metronidazole (Flagyl) 500 mg PO Q8H [facility] PRN Reason: Protocol Stop: 08/18/16 15:16 Last Admin: 07/20/16 07:43 Dose: 500 mg Nicotine (Nicoderm) 21 mg TD Q24H [facility] Stop: 08/18/16 16:01 Last Admin: 07/19/16 16:01 Dose: 21 mg Potassium Chloride (K-Dur) 20 meq PO BID [facility] Stop: 08/19/16 09:01 Last Admin: 07/20/16 09:41 Dose: 20 meq Thiamine HCl (Vitamin B-1) 100 mg PO DAILY [facility] Stop: 08/18/16 20:46 Last Admin: 07/20/16 09:42 Dose: 100 mg Physical Examination - Exam Vital Signs: Vital Signs - Last Taken Temp 37.1 C 07/20/16 10:01 Pulse 75 07/20/16 10:04 Resp 17 07/20/16 10:01 BP 138/94 07/20/16 10:01 Pulse Ox 93 07/20/16 10:01 O2 Oxygen Delivery Method Room Air Constitutional: Present: Alert, Oriented x3, Cooperative, Well developed, Well nourished, No distress ENT Exam: Present: normal ENT inspection Eye Exam: bilateral eye: normal inspection Neck: Present: normal inspection Respiratory: Present: no respiratory distress Abdomen: Present: soft, nondistended, no rebound tenderness, no hepatospenomegaly, no masses, tender - LLQ, other - Hx lap appy 5 years ago. Absent: guarding, rigidity Skin Exam: Present: warm/dry Neurologic: Present: no motor/sensory deficits - Results and Findings: Lab/Microbiology results last 24 hrs: Abnormal/Pending Laboratory Last 24 HRS 07/20/16 07/20/16 07/19/16 05:45 05:45 23:55 WBC 15.4 H Hct 40.7 L 41.1 L MPV 10.4 H Immature Gran % (Auto) 0.50 H Immature Gran # (Auto) 0.08 H Lymphocytes % 16.6 L Neutrophils # 11.6 H Monocytes # 1.1 H Sodium 143 H Plasma Sodium 143 H Potassium 3.0 L BUN 4 L BUN/Creatinine Ratio 4.7 L ALT 16 L Albumin 2.8 L Urine Opiates Screen 07/19/16 21:50 WBC Hct MPV Immature Gran % (Auto) Immature Gran # (Auto) Lymphocytes % Neutrophils # Monocytes # Sodium Plasma Sodium Potassium BUN BUN/Creatinine Ratio ALT Albumin Urine Opiates Screen Positive H - Assessments/Findings (1) Bloody stools Diagnosis(s): Recommend colonoscopy. Plan to do that tomorrow. Will prep today. The options, risks, and benefits were reviewed fully. He is aware that we may terminate the procedure short of a total colonoscopy if operations representative disease is identified distally and biopsied. He seems to understand, asks appropriate questions, and desires to proceed. Problem: Acute
[2016-07-20] MEDS: SODIUM, POTASSIUM,MAG SULFATES 1 KIT KIT PO ONE ×2 (14:07→15:02)
[2016-07-20] MEDS: NICOTINE 21 MG PATC TD SCH (15:59)
--- NOTE | 2016-07-20 18:29 | PN ---
Subjective - Date and Time Seen Date: 07/20/16 Time: 07:20 Subjective Narrative: Less abdominal pain, lots of gas, no nausea, anticipating colonoscopy today. Objective - Review of Systems Generalized/Overall Review: Reports: Malaise EENTM: Reports: No Symptoms Reported Respiratory: Reports: No Symptoms Reported Cardiac: Reports: No Symptoms Reported Abdominal: Reports: Abdominal Pain, Diarrhea, Melena, Other - gas Genitourinary Symptoms: Reports: No Symptoms Reported Musculoskeletal Complaints: Reports: Back Pain Neurological: Reports: No Symptoms Reported Skin: Reports: No Symptoms Reported Endocrine: Reports: No Symptoms Reported Misc: All systems neg except as marked - Vitals Vitals: Last Vital Signs Selected Entries 07/20/16 06:15 Temperature 37.1 C Temperature Temporal Artery Source Scan Pulse Rate 83 Respiratory 16 Rate Respiratory Normal Depth Blood Pressure 150/96 Blood Pressure Supine Position O2 Sat by Pulse 94 Oximetry Oxygen Delivery Room Air Method - Abnormal Lab Findings Abnormal Lab Findings: Abnormal Lab Results 07/19/16 07/19/16 07/20/16 Range/Units 21:50 23:55 05:45 WBC 15.4 H (4.0-10.5) K/mm3 Hct 41.1 L 40.7 L (42.0-52.0) % MPV 10.4 H (6.0-9.5) fl Immature Gran % (Auto) 0.50 H (0.001-0.429) % Immature Gran # (Auto) 0.08 H (0.000-0.0310) K/mm3 Lymphocytes % 16.6 L (20-51) % Neutrophils # 11.6 H (1.3-6.0) K/mm3 Monocytes # 1.1 H (0.0-1.0) k/mm3 Sodium (132-142) mmol/L Plasma Sodium (130-142) mmol/L Potassium (3.4-4.6) mmol/L BUN (6-23) mg/dL BUN/Creatinine Ratio (9.0-21.6) ALT (19-67) U/L Albumin (3.4-5.0) gm/dl Urine Opiates Screen Positive H (NEGATIVE) 07/20/16 Range/Units 05:45 WBC (4.0-10.5) K/mm3 Hct (42.0-52.0) % MPV (6.0-9.5) fl Immature Gran % (Auto) (0.001-0.429) % Immature Gran # (Auto) (0.000-0.0310) K/mm3 Lymphocytes % (20-51) % Neutrophils # (1.3-6.0) K/mm3 Monocytes # (0.0-1.0) k/mm3 Sodium 143 H (132-142) mmol/L Plasma Sodium 143 H (130-142) mmol/L Potassium 3.0 L (3.4-4.6) mmol/L BUN 4 L (6-23) mg/dL BUN/Creatinine Ratio 4.7 L (9.0-21.6) ALT 16 L (19-67) U/L Albumin 2.8 L (3.4-5.0) gm/dl Urine Opiates Screen (NEGATIVE) - Exam Constitutional: Present: Alert, Oriented x3, Cooperative, Well developed, Well nourished, No distress ENT Exam: Present: normal ENT inspection Neck: Present: normal inspection Respiratory: Present: normal breath sounds, no respiratory distress Cardiovascular/Chest: Present: regular rate, rhythm, no murmur Abdomen: Present: Normal bowel sounds, nondistended, no rebound tenderness, no hepatospenomegaly, no masses, tender Extremity: Present: normal inspection, no pedal edema Skin Exam: Present: normal color, warm/dry, no cyanosis Neurologic: Present: alert, oriented x 3 Appearance: Present: appropriate appearance, appropriate insight, neat Eye contact: Present: cooperative, good eye contact, normal speech Thoughts: Present: normal thought pattern Assessment/Plan Plan Narrative: Follow labs, wait for studies, possible colonoscopy with biopsy today. - Problems/Diagnosis (1) Abdominal pain Problem: Acute Qualifiers: Abdominal location: lower abdomen, unspecified Qualified Code(s): R10.30 - Lower abdominal pain, unspecified (2) Bloody stools Problem: Acute (3) Chronic back pain Problem: Chronic (4) ETOH abuse Problem: Chronic (5) HTN (hypertension) Problem: Chronic Qualifiers: Hypertension type: essential hypertension Qualified Code(s): I10 - Essential (primary) hypertension
[2016-07-20] MEDS ORDERED: SODIUM, POTASSIUM,MAG SULFATES 1 KIT KIT PO ONE (21:00)
[2016-07-20] MEDS: HYDROCHLOROTHIAZIDE 25 MG TABLET PO SCH (22:56)
[2016-07-21] MEDS: HYDROcodone/ACETAMINOPHEN 1 EACH TABLET PO PRN ×4 (01:09→21:07)
[2016-07-21] MEDS: ACETAMINOPHEN 325 MG TABLET PO PRN ×2 (04:22→10:46)
[2016-07-21] MEDS: POTASSIUM CHLORIDE 40 MEQ in DEXTROSE 5%-LACTATED RINGERS 1,000 ML IV SCH ×3 (05:10→19:51)
[2016-07-21 06:14] LABS: Hematocrit 42.2 % (42.0-52.0); Hemoglobin 14.5 gm/dL (13.5-18.0); Mean Cell Volume 86.8 fl (78-100); Mean Corpuscular Hemoglobin 29.8 pg (27-31); Mean Corpuscular Hgb Conc 34.4 g/dl (32-36); Mean Platelet Volume 10.7 fl (6.0-9.5); Neutrophil # 8.5 K/mm3 (1.3-6.0); Neutrophil % 70.4 % (42-75.0); Platelet Count 281 K/mm3 (150-450); Red Blood Count 4.86 M/mm3 (4.7-6.0); Red Cell Distribution Width 12.4 % (11.5-14.0)
[2016-07-21 06:28] LABS: Anion Gap 12.4 mmol/L (6.8-13.8); BUN/Creatinine Ratio 3.8 (9.0-21.6); Calcium * 9.6 mg/dL (7.9-10.9); Carbon Dioxide 26.4 mmol/L (24-32.6); Estimated Creat Clear 109.9; Potassium 3.8 mmol/L (3.4-4.6)
[2016-07-21] MEDS: metroNIDAZOLE 500 MG TABLET PO SCH ×3 (07:32→22:43)
[2016-07-21] MEDS: CLONIDINE HCL 0.2 MG TABLET PO SCH ×3 (07:37→22:43)
[2016-07-21] MEDS: CIPROFLOXACIN HCL 500 MG TABLET PO SCH ×2 (09:04→20:21)
[2016-07-21] MEDS: PANTOPRAZOLE SODIUM 40 MG in NORMAL SALINE 100 ML IV SCH ×2 (09:04→20:21)
[2016-07-21] MEDS: MAGNESIUM OXIDE 400 MG TABLET PO SCH (09:05)
[2016-07-21] MEDS: FOLIC ACID 1 MG TABLET PO SCH (09:05)
[2016-07-21] MEDS: POTASSIUM CHLORIDE 20 MEQ TABLET.SA PO SCH ×2 (09:05→20:22)
[2016-07-21] MEDS: THIAMINE HCL 100 MG TABLET PO SCH (09:05)
[2016-07-21] MEDS: GABAPENTIN 400 MG CAPSULE PO SCH ×4 (09:05→20:21)
[2016-07-21] MEDS: HYDROCHLOROTHIAZIDE 25 MG TABLET PO SCH (09:05)
[2016-07-21] MEDS: MULTIVITAMINS 1 CAP CAPSULE PO SCH (09:05)
[2016-07-21] MEDS ORDERED: RINGERS SOLUTION,LACTATED 1,000 ML IV ONE (12:00)
--- NOTE | 2016-07-21 13:21 | OR ---
Operative Report - Dictated Report Narrative: Date: 07/21/2016 Preoperative diagnosis: bloody stools and possible colitis by CT Postoperative diagnosis: Contiguous colitis from distal transverse colon to anus Procedure: Total colonoscopy with biopsy Staff surgeon: Elia Gutierrez MD Anesthesia: MAC per CHEMISTRY ASSOCIATE EBL: minimal Specimens: Cold forceps biopsy x 2 at 35 cm. Cold forceps biopsy x 1 at 20 cm. Description: after informed consent and appropriate sedation the patient was placed in left lateral decubitus position. Flexible fiberoptic video colonoscope was introduced and advanced under direct vision without difficulty to the cecum. The usual landmarks were identified. [place] photo documentation was obtained. Preparation was good and excellent views were obtained. The findings were of a normal cecum, ascending colon, hepatic flexure, proximal and mid transverse colon. There were inflammatory changes that were patchy starting at the distal transverse continuously throughout the remainder the colon down to the anus with more intense inflammatory changes in the distal sigmoid and rectum. Biopsies were taken as listed above and hemostasis appeared to be adequate. No suspicious masses were identified. The patient tolerated the procedure well without apparent complications and was discharged from the endoscopy suite in stable condition.
[2016-07-21] MEDS: NICOTINE 21 MG PATC TD SCH (16:06)
--- NOTE | 2016-07-21 18:03 | PN ---
Subjective - Date and Time Seen Date: 07/21/16 Time: 07:10 Subjective Narrative: Less symptoms. Doing well. Objective - Review of Systems Generalized/Overall Review: Reports: Malaise EENTM: Reports: No Symptoms Reported Respiratory: Reports: No Symptoms Reported Cardiac: Reports: No Symptoms Reported Abdominal: Reports: Abdominal Pain, Other - gas Genitourinary Symptoms: Reports: No Symptoms Reported Musculoskeletal Complaints: Reports: No Symptoms Reported Neurological: Reports: No Symptoms Reported Skin: Reports: No Symptoms Reported Endocrine: Reports: No Symptoms Reported Misc: All systems neg except as marked - Vitals Vitals: Last Vital Signs Selected Entries 07/21/16 02:00 Temperature 36.8 C Temperature Oral Source Pulse Rate 86 Respiratory 18 Rate Blood Pressure 161/107 Blood Pressure Supine Position O2 Sat by Pulse 95 Oximetry Oxygen Delivery Room Air Method - Abnormal Lab Findings Abnormal Lab Findings: Abnormal Lab Results 07/21/16 07/21/16 Range/Units 06:08 06:08 WBC 12.0 H D (4.0-10.5) K/mm3 MPV 10.7 H (6.0-9.5) fl Immature Gran % (Auto) 0.50 H (0.001-0.429) % Immature Gran # (Auto) 0.06 H (0.000-0.0310) K/mm3 Neutrophils # 8.5 H (1.3-6.0) K/mm3 BUN 3 L (6-23) mg/dL BUN/Creatinine Ratio 3.8 L (9.0-21.6) Random Glucose 121 H (70-110) mg/dL - Exam Constitutional: Present: Alert, Oriented x3, Cooperative, Well developed, Well nourished, No distress ENT Exam: Present: normal ENT inspection Neck: Present: normal inspection Respiratory: Present: normal breath sounds, no respiratory distress Cardiovascular/Chest: Present: regular rate, rhythm, no chest tenderness Abdomen: Present: Normal bowel sounds, soft, nondistended, no rebound tenderness , no hepatospenomegaly, no masses, tender Extremity: Present: normal inspection, no pedal edema Skin Exam: Present: normal color, warm/dry, no cyanosis Neurologic: Present: alert, oriented x 3 Appearance: Present: appropriate appearance, appropriate insight, neat, no memory impairment Eye contact: Present: cooperative, good eye contact, normal speech Thoughts: Present: normal thought pattern Assessment/Plan Plan Narrative: Await results of studies and colon biopsies. otherwise, continue current treatment. - Problems/Diagnosis (1) Abdominal pain Problem: Acute Qualifiers: Abdominal location: lower abdomen, unspecified Qualified Code(s): R10.30 - Lower abdominal pain, unspecified (2) Bloody stools Problem: Acute (3) Chronic back pain Problem: Chronic (4) ETOH abuse Problem: Chronic (5) HTN (hypertension) Problem: Chronic Qualifiers: Hypertension type: essential hypertension Qualified Code(s): I10 - Essential (primary) hypertension
[2016-07-22 02:24] LABS: P-ANCA Titer DNR titer (<1:20)
[2016-07-22] MEDS: POTASSIUM CHLORIDE 40 MEQ in DEXTROSE 5%-LACTATED RINGERS 1,000 ML IV SCH ×2 (02:39→08:39)
[2016-07-22] MEDS: HYDROcodone/ACETAMINOPHEN 1 EACH TABLET PO PRN ×4 (03:09→22:17)
[2016-07-22 05:09] LABS: Hematocrit 40.5 % (42.0-52.0); Hemoglobin 13.8 gm/dL (13.5-18.0); Mean Cell Volume 87.5 fl (78-100); Mean Corpuscular Hemoglobin 29.8 pg (27-31); Mean Corpuscular Hgb Conc 34.1 g/dl (32-36); Mean Platelet Volume 10.3 fl (6.0-9.5); Neutrophil # 4.6 K/mm3 (1.3-6.0); Neutrophil % 56.5 % (42-75.0); Platelet Count 269 K/mm3 (150-450); Red Blood Count 4.63 M/mm3 (4.7-6.0); Red Cell Distribution Width 12.5 % (11.5-14.0); White Blood Count 8.2 K/mm3 (4.0-10.5)
[2016-07-22 05:31] LABS: Anion Gap 10.1 mmol/L (6.8-13.8); BUN/Creatinine Ratio 5.6 (9.0-21.6); Calcium * 9.6 mg/dL (7.9-10.9); Carbon Dioxide 29.3 mmol/L (24-32.6); Estimated Creat Clear 97.6; Potassium 4.4 mmol/L (3.4-4.6)
[2016-07-22] MEDS: metroNIDAZOLE 500 MG TABLET PO SCH ×3 (06:43→22:20)
[2016-07-22] MEDS: CLONIDINE HCL 0.2 MG TABLET PO SCH ×3 (06:43→22:21)
--- NOTE | 2016-07-22 08:15 | PN ---
Subjective - Date and Time Seen Date: 07/22/16 Time: 08:13 Subjective Narrative: Had BM with speck of blood last night Objective Objective Narrative: Pt is out walking the halls - Vitals Vitals: Last Vital Signs Temp 37.1 C 07/22/16 07:17 Pulse 66 07/22/16 07:17 Resp 18 07/22/16 07:17 BP 143/94 07/22/16 07:17 Pulse Ox 98 07/22/16 07:17 - Abnormal Lab Findings Abnormal Lab Findings: Abnormal Lab Results 07/22/16 07/22/16 Range/Units 05:10 05:10 RBC 4.63 L (4.7-6.0) M/mm3 Hct 40.5 L (42.0-52.0) % MPV 10.3 H (6.0-9.5) fl Immature Gran % (Auto) 0.50 H (0.001-0.429) % Immature Gran # (Auto) 0.04 H (0.000-0.0310) K/mm3 BUN 5 L D (6-23) mg/dL BUN/Creatinine Ratio 5.6 L (9.0-21.6) Assessment/Plan Plan Narrative: A: Stable P: Await path - Problems/Diagnosis (1) Bloody stools Problem: Acute
--- NOTE | 2016-07-22 08:50 | PN ---
Subjective - Date and Time Seen Date: 07/22/16 Time: 08:00 Subjective Narrative: Less symptoms. Doing well. Small amount of blood from rectum. Small amount of LLQ abdominal pain. No real BM. No nausea. Last night bug bites on left buttock. Now an a burny slightly painful rash in that area. No nausea. Objective - Review of Systems Generalized/Overall Review: Reports: No Symptoms Reported EENTM: Reports: No Symptoms Reported Respiratory: Reports: No Symptoms Reported Cardiac: Reports: No Symptoms Reported Abdominal: Reports: Other - see HPI. biopsies pending. Genitourinary Symptoms: Reports: No Symptoms Reported Musculoskeletal Complaints: Reports: No Symptoms Reported Neurological: Reports: No Symptoms Reported Skin: Reports: Other - HPI Endocrine: Reports: No Symptoms Reported Misc: All systems neg except as marked - Vitals Vitals: Last Vital Signs Selected Entries 07/22/16 07:17 Temperature 37.1 C Temperature Oral Source Pulse Rate 66 Respiratory 18 Rate Respiratory Normal Depth Blood Pressure 143/94 Blood Pressure Supine Position O2 Sat by Pulse 98 Oximetry Oxygen Delivery Room Air Method - Abnormal Lab Findings Abnormal Lab Findings: Abnormal Lab Results 07/22/16 07/22/16 Range/Units 05:10 05:10 RBC 4.63 L (4.7-6.0) M/mm3 Hct 40.5 L (42.0-52.0) % MPV 10.3 H (6.0-9.5) fl Immature Gran % (Auto) 0.50 H (0.001-0.429) % Immature Gran # (Auto) 0.04 H (0.000-0.0310) K/mm3 BUN 5 L D (6-23) mg/dL BUN/Creatinine Ratio 5.6 L (9.0-21.6) - Exam Constitutional: Present: Alert, Oriented x3, Cooperative, Well developed, Well nourished, No distress ENT Exam: Present: normal ENT inspection, hearing grossly normal Neck: Present: normal inspection Respiratory: Present: chest non-tender, lungs clear, normal breath sounds, no respiratory distress, no accessory muscle use Cardiovascular/Chest: Present: regular rate, rhythm, no murmur Abdomen: Present: Normal bowel sounds, soft, nondistended, no rebound tenderness , no hepatospenomegaly, no masses, tender - minimally tender left lower quadrant. Extremity: Present: non-tender, no pedal edema Skin Exam: Present: normal color, warm/dry, no cyanosis, skin rash - pink maculopap rash left posterolateral left buttock and slightly distal, few tiny pustules Lymphatic: Present: no adenopathy Neurologic: Present: alert, normal mood/affect Appearance: Present: appropriate appearance, appropriate insight, neat, no memory impairment Eye contact: Present: cooperative, good eye contact, normal speech Thoughts: Present: normal thought pattern Assessment/Plan Plan Narrative: Advance diet. Same treatment. Add acyclovir and bactroban. - Problems/Diagnosis (1) Abdominal pain Problem: Acute Qualifiers: Abdominal location: lower abdomen, unspecified Qualified Code(s): R10.30 - Lower abdominal pain, unspecified (2) Bloody stools Problem: Acute (3) Chronic back pain Problem: Chronic (4) ETOH abuse Problem: Chronic (5) HTN (hypertension) Problem: Chronic Qualifiers: Hypertension type: essential hypertension Qualified Code(s): I10 - Essential (primary) hypertension (6) Shingles Problem: Acute
[2016-07-22] MEDS: GABAPENTIN 400 MG CAPSULE PO SCH ×4 (09:21→20:28)
[2016-07-22] MEDS: THIAMINE HCL 100 MG TABLET PO SCH (09:21)
[2016-07-22] MEDS: POTASSIUM CHLORIDE 20 MEQ TABLET.SA PO SCH ×2 (09:21→20:29)
[2016-07-22] MEDS: FOLIC ACID 1 MG TABLET PO SCH (09:21)
[2016-07-22] MEDS: CIPROFLOXACIN HCL 500 MG TABLET PO SCH ×2 (09:21→20:28)
[2016-07-22] MEDS: MUPIROCIN 22 APPL TUBE TP SCH ×2 (09:21→20:29)
[2016-07-22] MEDS: MAGNESIUM OXIDE 400 MG TABLET PO SCH (09:22)
[2016-07-22] MEDS: MULTIVITAMINS 1 CAP CAPSULE PO SCH (09:22)
[2016-07-22] MEDS: HYDROCHLOROTHIAZIDE 25 MG TABLET PO SCH (09:22)
[2016-07-22] MEDS: ACYCLOVIR 800 MG TABLET PO SCH ×4 (10:54→22:17)
[2016-07-22] MEDS: NICOTINE 21 MG PATC TD SCH (15:09)
[2016-07-22] MEDS: PANTOPRAZOLE SODIUM 40 MG TABLET.EC PO SCH (20:29)
[2016-07-22] MEDS ORDERED: traZODone HCL 150 MG, traZODone HCL 50 MG PO SCH ×2 (21:00)
[2016-07-22] MEDS ORDERED: traZODone HCL 150 MG TABLET PO SCH (21:00)
[2016-07-22] MEDS ORDERED: metroNIDAZOLE 250 MG TABLET ONE (22:20)
[2016-07-23 06:26] VITALS: BP 108/59
[2016-07-23] MEDS: HYDROcodone/ACETAMINOPHEN 1 EACH TABLET PO PRN (06:46)
[2016-07-23] MEDS: ACYCLOVIR 800 MG TABLET PO SCH (06:47)
[2016-07-23] MEDS: PANTOPRAZOLE SODIUM 40 MG TABLET.EC PO SCH (06:47)
[2016-07-23] MEDS: metroNIDAZOLE 500 MG TABLET PO SCH (06:47)
[2016-07-23] MEDS: CLONIDINE HCL 0.2 MG TABLET PO SCH (06:47)
--- NOTE | 2016-07-23 08:13 | DS ---
(1) Abdominal pain Problem: Resolved Qualifiers: Abdominal location: lower abdomen, unspecified Qualified Code(s): R10.30 - Lower abdominal pain, unspecified (2) Bloody stools Problem: Resolved (3) Chronic back pain Problem: Chronic (4) ETOH abuse Problem: Chronic (5) HTN (hypertension) Problem: Chronic Qualifiers: Hypertension type: essential hypertension Qualified Code(s): I10 - Essential (primary) hypertension (6) Shingles Problem: Acute (7) Alcohol dependence Problem: Acute (8) Nicotine dependence Problem: Acute (9) Migraine Problem: Acute (10) Bipolar 1 disorder Problem: Acute (11) Ischemic colitis Problem: Acute Description of Stay: Gradual improvement. Biopsies disclosed ischemic colitis. Disclosed moods swings. Almost certainly has bipolar. Developed shingles. Asked for help with smoking cessation. Procedures Performed: see notes below - colonoscopy with biopsy Discharge Disposition: Home self care Disposition: Home self-care Condition: Good Discharge Activity: Activity as tolerated Discharge Diet: High Fiber Referrals: Mookie Grimm MD [Primary Care Provider] - Consultation Done:: Dr. Ribera, general surgery Problem Oriented Discharge Instructions to Patient/Family: Colitis Additional Patient Instructions (free text): MRI today Keep appt with Dr. Odessa Chang tomorrow Don't use alcohol, tobacco or ultram Prescriptions (Any new or edited meds): Acyclovir [Zovirax] 800 mg PO 5XD #50 tablet Clonidine HCl [Catapres] 0.2 mg PO Q8H #30 tablet Disulfiram [Antabuse] 250 mg PO HS #30 tab Folic Acid 1 mg PO DAILY #30 tablet Gabapentin [Neurontin] 800 mg PO QID #40 capsule Multivitamins [Multivitamin Derrell] 1 cap PO DAILY #30 capsule Mupirocin [Bactroban] 1 appl TP BID #1 tube Naltrexone HCl [ReVia] 50 mg PO HS #30 tab Nicotine [Nicoderm] 21 mg TD Q24H #1 patch.td24 Thiamine HCl [Vitamin B-1] 100 mg PO DAILY #30 tablet Topiramate [Topamax] 25 mg PO DAILY #30 cap lamoTRIgine [Lamictal] 25 mg PO DAILY@1700 #180 tab risperiDONE [Risperdal] 1 mg PO HS #30 tab Complete Home Medications List: Complete Home Medication List: Acetaminophen [Tylenol] 650 mg PO QID PRN #0 tablet 07/23/16 Acyclovir [Zovirax] 800 mg PO 5XD #50 tablet 07/23/16 Clonidine HCl [Catapres] 0.2 mg PO Q8H #30 tablet 07/23/16 Disulfiram [Antabuse] 250 mg PO HS #30 tab 07/23/16 Folic Acid 1 mg PO DAILY #30 tablet 07/23/16 Gabapentin [Neurontin] 800 mg PO QID #40 capsule 07/23/16 Multivitamins [Multivitamin Derrell] 1 cap PO DAILY #30 capsule 07/23/16 Mupirocin [Bactroban] 1 appl TP BID #1 tube 07/23/16 Naltrexone HCl [ReVia] 50 mg PO HS #30 tab 07/23/16 Nicotine [Nicoderm] 21 mg TD Q24H #1 patch.td24 07/23/16 Thiamine HCl [Vitamin B-1] 100 mg PO DAILY #30 tablet 07/23/16 Topiramate [Topamax] 25 mg PO DAILY #30 cap 07/23/16 lamoTRIgine [Lamictal] 25 mg PO DAILY@1700 #180 tab 07/23/16 risperiDONE [Risperdal] 1 mg PO HS #30 tab 07/23/16
[2016-07-23] MEDS: MULTIVITAMINS 1 CAP CAPSULE PO SCH (08:35)
[2016-07-23] MEDS: MAGNESIUM OXIDE 400 MG TABLET PO SCH (08:35)
[2016-07-23] MEDS: CIPROFLOXACIN HCL 500 MG TABLET PO SCH (08:35)
[2016-07-23] MEDS: POTASSIUM CHLORIDE 20 MEQ TABLET.SA PO SCH (08:35)
[2016-07-23] MEDS: HYDROCHLOROTHIAZIDE 25 MG TABLET PO SCH (08:35)
[2016-07-23] MEDS: THIAMINE HCL 100 MG TABLET PO SCH (08:35)
[2016-07-23] MEDS: GABAPENTIN 400 MG CAPSULE PO SCH (08:35)
[2016-07-23] MEDS: FOLIC ACID 1 MG TABLET PO SCH (08:36)
[2016-07-23] MEDS: MUPIROCIN 22 APPL TUBE TP SCH (08:36)
== END 2016-07-23 10:10 | disposition home or self-care (01) | DRG 395 ==
LOC: ER 10:39 → MS 14:42
PROVIDERS: ADMIT Allergy & Immunology; ATTEND Allergy & Immunology
PROC: 0DBN8ZX Excision of Sigmoid Colon, Via Natural or Artificial Opening Endoscopic, Diagnostic (ICD-10-PCS; 2016-07-21)
PROC: 0DBL8ZX Excision of Transverse Colon, Via Natural or Artificial Opening Endoscopic, Diagnostic (ICD-10-PCS; principal; 2016-07-21 12:15)
DX: K55.039 Acute (reversible) ischemia of large intestine, extent unspecified (principal); B02.9 Zoster without complications; I10 Essential (primary) hypertension; M54.9 Dorsalgia, unspecified; F31.9 Bipolar disorder, unspecified; F17.210 Nicotine dependence, cigarettes, uncomplicated; F10.20 Alcohol dependence, uncomplicated
CPT/HCPCS: 36415; 45380; 74177; 80048; 80053; 80307; 81001; 82272; 83605; 83735; 84145; 85014; 85018; 85025; 85610; 85652; 85730; 86021; 86140; 86850; 86900; 87040; 87045; 87046; 87177; 87209; 87329; 87493; 88305; 93005; 96365; 99284; G0481

== ENCOUNTER 2016-08-25 18:57 | Emergency (ER) | payer MEDICAID ==
[2016-08-25 19:38] LABS: Hematocrit 43.4 % (42.0-52.0); Hemoglobin 15.6 gm/dL (13.5-18.0); Mean Cell Volume 84.6 fl (78-100); Mean Corpuscular Hemoglobin 30.4 pg (27-31); Mean Corpuscular Hgb Conc 35.9 g/dl (32-36); Mean Platelet Volume 10.4 fl (6.0-9.5); Neutrophil # 17.3 K/mm3 (1.3-6.0); Neutrophil % 74.2 % (42-75.0); Platelet Count 405 K/mm3 (150-450); Red Blood Count 5.13 M/mm3 (4.7-6.0); Red Cell Distribution Width 13.5 % (11.5-14.0); White Blood Count 23.3 K/mm3 (4.0-10.5)
[2016-08-25 19:39] LABS: Urine Bilirubin Negative (NEGATIVE); Urine Blood Negative /ul (NEGATIVE); Urine Ketone Negative (NEGATIVE); Urine Nitrite Negative (NEGATIVE); Urine Protein Negative (NEGATIVE); Urine Specific Gravity <=1.005 SP.GR. (1.005-1.030); Urine Urobilinogen Normal (NORMAL)
[2016-08-25 19:47] LABS: ALT 32 U/L (19-67); AST 18 U/L (0-48); Alkaline Phosphatase * 103 U/L (50-170); Anion Gap 18.4 mmol/L (6.8-13.8); Bilirubin, Total 0.4 mg/dL (0.0-1.1); Blood Urea Nitrogen 11 mg/dL (6-23); Ca. Corrected For Albumin 9.2 mg/dL (8.4-10.2); Calcium * 9.5 mg/dL (7.9-10.9); Carbon Dioxide 21.7 mmol/L (24-32.6); Chloride 102 mmol/L (97-106); Glucose * 139 mg/dL (70-110); Magnesium 1.7 mg/dL (1.2-2.8); Potassium 3.1 mmol/L (3.4-4.6); Salicylate 5.5 mg/dL (2.8-20.0); Sodium 139 mmol/L (132-142); Total Protein 7.8 gm/dL (6.2-8.2)
[2016-08-25 19:48] LABS: Urine Appearance Clear; Urine Color Pale Yellow
[2016-08-25 19:49] LABS: Urine Bacteria None Seen; Urine RBC None Seen /hpf (0-5); Urine WBC None Seen /hpf (0-5)
[2016-08-25 19:51] LABS: Cocaine Ur Negative (NEGATIVE); Urine Barbiturate Negative (NEGATIVE); Urine Benzodiazepines Negative (NEGATIVE); Urine Opiates Negative (NEGATIVE); Urine PCP Negative (NEGATIVE); Urine THC Negative (NEGATIVE)
--- NOTE | 2016-08-25 20:00 | ERNOTE ---
<Ousmane Galaviz - Last Filed: 08/25/16 19:34> Psychological HPI - General Chief Complaint: Psychiatric Problem Source: Reports: patient Exam Limitations: Reports: no limitations - Immun/Allergies/Home Medications Allergies/Adverse Reactions: Allergies erythromycin base Allergy (Verified 07/19/16 15:56) Hives Influenza Virus Vaccines Allergy (Verified 07/31/16 19:07) Home Medications: HOME MEDICATIONS Clonidine HCl 0.3 mg PO TID 08/25/16 [Last Taken Unknown] Acetaminophen [Tylenol] 500 mg PO PRN PRN 08/26/16 [Last Taken Unknown] Multivitamin [One Daily Multivitamin] 1 each PO DAILY 08/26/16 [Last Taken Unknown] Nicotine [Nicoderm] 21 mg TD DAILY 08/26/16 [Last Taken Unknown] QUEtiapine FUMARATE [Seroquel] 50 mg PO HS 08/26/16 [Last Taken Unknown] Topiramate [Topamax] 25 mg PO HS PRN 08/26/16 [Last Taken Unknown] tiZANidine HCL [Tizanidine HCl] 6 mg PO QID 08/26/16 [Last Taken Unknown] - History of Present Illness Narrative: Patient states that he has had an exceedingly bad year. He states he hurt his back, lost his job, his took his children and left, his car was repossessed and the bank is under [place] foreclosure on his home. He further states because of these stressors he has gone back into drugs and alcohol to find relief. He declares now that he is profoundly depressed and is having suicidal thoughts and is here seeking help. Onset/duration: Reports: gradual onset Intent: Reports: suicide Situational Problems: Reports: spouse, recent , lost job Associated Symptoms: Reports: depressed Review of Systems - Review of Systems Constitutional: Present: See HPI EYE: Present: no symptoms reported ENT: Present: no symptoms reported Respiratory: Present: no symptoms reported Cardiology: Present: no symptoms reported Gastrointestinal/Abdominal: Present: no symptoms reported Genitourinary: Present: no symptoms reported Musculoskeletal: Present: no symptoms reported Skin: Present: no symptoms reported Neurological: Present: depressed, emotional problems Endocrine: Present: no symptoms reported Hematologic/Lymphatic: Present: no symptoms reported Psych: Present: depressed, emotional problems, other - history of drug abuse - Patient's Past Medical History Patient History - Medical: Anxiety, Bipolar, Depression Patient History - Cardiac/Respiratory: Hypertension Patient History - Cancer: No Hx of Cancer Patient History - Surgical Procedures: Appendectomy, T & A, Other Patient History - Other: None - Family History Mother Family History - Cardiac/Respiratory: COPD Father Family History - Medical: Family History - Cancer: Liver, Prostate - Social History Living Situations: home Abuse History: Hx of Substance Use - patient issues IV amphetamines in the past , per marijuana, alcohol and very rare use of heroin or cocaine Psych History: Hx of Anxiety, Hx of Depression, Hx of Bipolar Disorder, Current tx/ever been on anti-depressants or anti-anxiety meds Smoking Status: Current every day smoker Have you smoked in the past 12 months: Yes Do you dip or chew tobacco: No Patient requests Smoking Cessation Consult: Yes Initiate information on Smoking Cessation: No Alcohol Use: none Drug Use: none - Immunizations Immunizations Up to Date: Yes Hx Pneumococcal Vaccination: No History of Influenza Vaccine: No Physical Exam - Physical Exam General Appearance: Present: wd/wn, alert, moderate distress Eye Exam: Normal inspection: bilateral, PERRL: bilateral Ears, Nose, Throat: Present: normal ENT inspection, H, normal pharynx Neck: Present: normal inspection, nontender Respiratory: Present: no respiratory distress, normal breath sounds, no accessory muscle use, chest nontender, lungs clear Cardiovascular/Chest: Present: no murmur, normal peripheral pulses, tachycardia Gastrointestinal/Abdominal: Present: normal bowel sounds, nontender, nondistended, soft, no organomegaly Rectal Exam: Present: deferred Back Exam: Present: normal inspection, normal range of motion Extremity Exam: Present: normal inspection, non-tender, no edema, normal range of motion Neurological Exam: Present: alert, oriented, normal mood/affect, other - patient admits to drinking what he says is 32 ounces of alcohol tonight and he is overwhelmed by stressors in his life and is feeling suicidal and is afraid that he may attempt to do something Skin Exam: Present: normal color, warm/dry Lymphatic Exam: Present: no adenopathy ED Progress - Results and Orders Patient's Lab Results:: I have reviewed the patient's lab results. - Vital Signs Patient's Vital Signs:: I have reviewed the patient's vital signs. Vital Signs: Vital Signs 08/25/16 18:59 Temperature 37.2 C Pulse Rate 160 H Respiratory 22 H Rate Blood Pressure 120/93 O2 Sat by Pulse 97 Oximetry - Progress/Reassessment Chief Complaint: Psychiatric Problem - Transfer of Care Physician Sign Out: Ousmane Galaviz Receiving Physician: Thom Samuels Clinical Impression: Bipolar 1 disorder, Suicidal ideations Nicotine dependence Qualifiers: Nicotine product type: cigarettes Substance use status: uncomplicated Qualified Code(s): F17.210 - Nicotine dependence, cigarettes, uncomplicated Alcohol dependence Qualifiers: Substance use status: alcohol-induced psychotic disorder Complication of substance-induced condition: with unspecified complication Qualified Code(s): 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 Results and Orders: Laboratory Tests 08/25/16 08/25/16 08/25/16 19:21 19:21 19:30 WBC 23.3 H Hgb 15.6 Hct 43.4 Plt Count 405 Sodium Potassium Chloride Carbon Dioxide Anion Gap BUN Creatinine Est GFR (Non-Af Amer) Random Glucose Calcium Magnesium Total Bilirubin AST ALT Alkaline Phosphatase Total Protein Albumin Urine Color Pale yellow Urine Appearance Clear Urine pH 6.0 Ur Specific [place] <=1.005 Urine Protein Negative Urine Glucose (UA) Negative Urine Ketones Negative Urine Blood Negative Urine Nitrate Negative Urine Bilirubin Negative Urine Urobilinogen Normal Ur Leukocyte Esterase Negative Urine RBC None seen Urine WBC None seen Ur Epithelial Cells None seen Urine Bacteria None seen Urine Culture Comments No culture indicated Salicylates Urine Opiates Screen Negative Acetaminophen Barbiturate Screen Negative Ur Phencyclidine Scrn Negative Urine Amphetamine Negative U Benzodiazepines Scrn Negative Urine Cocaine Screen Negative Urine Marijuana (THC) Negative Ethyl Alcohol 08/25/16 19:30 WBC Hgb Hct Plt Count Sodium 139 Potassium 3.1 L D Chloride 102 Carbon Dioxide 21.7 L Anion Gap 18.4 H BUN 11 D Creatinine 1.00 Est GFR (Non-Af Amer) 87 Random Glucose 139 H Calcium 9.5 Magnesium 1.7 Total Bilirubin 0.4 AST 18 ALT 32 Alkaline Phosphatase 103 Total Protein 7.8 Albumin 4.0 Urine Color Urine Appearance Urine pH Ur Specific [place] Urine Protein Urine Glucose (UA) Urine Ketones Urine Blood Urine Nitrate Urine Bilirubin Urine Urobilinogen Ur Leukocyte Esterase Urine RBC Urine WBC Ur Epithelial Cells Urine Bacteria Urine Culture Comments Salicylates 5.5 Urine Opiates Screen Acetaminophen Less than 0.2 L Barbiturate Screen Ur Phencyclidine Scrn Urine Amphetamine U Benzodiazepines Scrn Urine Cocaine Screen Urine Marijuana (THC) Ethyl Alcohol 140.0 H - Vital Signs Patient's Vital Signs:: I have reviewed the patient's vital signs. Vital Signs: Vital Signs 08/25/16 08/26/16 18:59 02:22 Temperature 37.2 C 36.8 C Pulse Rate 160 H 97 Respiratory 22 H 18 Rate Blood Pressure 120/93 149/101 O2 Sat by Pulse 97 97 Oximetry - X-Ray X-Ray #1 X-Ray: chest Interpretation: Reviewed by me X-ray Comments: no acute cardiopulmonary changes - Progress/Reassessment Progress Note-Subjective: 08/26/16 07:58 Pt has been calm and sleeping off and on throughout the night. Discussed his situation and where he has tried to get help. Pt feels he is worsening and needs help acutely. <Sadia Plasencia - Last Filed: 08/26/16 09:18> ED Progress - Results and Orders Patient's Lab Results:: I have reviewed the patient's lab results. - Vital Signs Patient's Vital Signs:: I have reviewed the patient's vital signs. Vital Signs: Vital Signs 08/26/16 08/26/16 08/26/16 02:22 07:32 08:00 Temperature 36.8 C 36.6 C Pulse Rate 97 96 96 Respiratory 18 18 Rate Blood Pressure 149/101 154/91 154/91 O2 Sat by Pulse 97 97 Oximetry - Progress/Reassessment Progress Note-Subjective: 08/26/16 09:08 Patient resting, easily aroused, states that he has had a bad year, lost his job in February after he got injured. His father in May. He feels very low and like giving up, no definite plan on how he would end his life. He has been working with his PCP (Dr Merritt) for the last 6-8 weeks on the depression ,states that he is taking his seroquel and topamax as prescribed. He has filled out the paperwork to be seen by psychiatry but has not been able to get an appointment yet, denies any prior treatment by an psychiatrist, denies any physical complaints lungs clear to auscultation heart RRR abdomen: soft, non tender, normal bowel sounds
[2016-08-25] MEDS ORDERED: hydrOXYzine PAMOATE 25 MG CAPSULE PO ONE (21:54)
[2016-08-25] MEDS ORDERED: hydrOXYzine PAMOATE 25 MG CAPSULE ONE (22:00)
[2016-08-26] MEDS ORDERED: CLONIDINE HCL 0.1 MG TABLET PO ONE (07:29)
[2016-08-26] MEDS ORDERED: ACETAMINOPHEN 500 MG TABLET PO ONE (07:30)
[2016-08-26] MEDS ORDERED: CLONIDINE HCL 0.1 MG TABLET ONE (07:44)
[2016-08-26] MEDS ORDERED: tiZANidine HCL 4 MG TABLET PO PRN (07:59)
[2016-08-26 11:05] VITALS: BP 124/75
== END 2016-08-26 11:55 | disposition short-term general hospital (02) ==
LOC: ER 18:57
DX: R45.851 Suicidal ideations (principal); F33.2 Major depressive disorder, recurrent severe without psychotic features; F17.210 Nicotine dependence, cigarettes, uncomplicated; F10.259 Alcohol dependence with alcohol-induced psychotic disorder, unspecified; F34.1 Dysthymic disorder; Z79.899 Other long term (current) drug therapy; F19.90 Other psychoactive substance use, unspecified, uncomplicated
CPT/HCPCS: 36415; 71020; 80053; 80307; 81001; 83735; 85025; 99285; G0480; G0481

== ENCOUNTER 2018-11-08 16:54 | Inpatient (IN) ==
[2018-11-08] MEDS ORDERED: NORMAL SALINE 1,000 ML IV ONE ×3 (17:13→22:00)
[2018-11-08] MEDS ORDERED: LORazepam 2 MG/ML DISP.SYRIN IV ONE ×3 (17:17→18:03)
[2018-11-08 17:30] LABS: Hematocrit 42.3 % (42.0-52.0); Hemoglobin 14.9 gm/dL (13.5-18.0); Mean Cell Volume 88.5 fl (78-100); Mean Corpuscular Hemoglobin 31.2 pg (27-31); Mean Corpuscular Hgb Conc 35.2 g/dl (32-36); Mean Platelet Volume 9.9 fl (8-11.3); Platelet Count 443 K/mm3 (150-450); Red Blood Count 4.78 M/mm3 (4.7-6.0); Red Cell Distribution Width 13.1 % (11.5-14.0); White Blood Count 26.2 K/mm3 (4.0-10.5)
[2018-11-08 17:32] LABS: Total Cells Counted 100
[2018-11-08 17:42] LABS: Band 3 % (0-2.0); Lymphocyte 9 % (20-51); Monocyte 3 % (0-9); Neutrophil 85 % (42-75); Neutrophil # 22.3 K/mm3 (1.3-6.0); Platelet Estimate Normal (NORMAL); RBC Morphology Normal (NORMAL)
[2018-11-08 17:44] LABS: ALT 28 U/L (19-67); AST 44 U/L (0-48); Albumin * 4.1 gm/dl (3.4-5.0); Alkaline Phosphatase * 117 U/L (50-170); Anion Gap 26.2 mmol/L (6.8-13.8); BUN/Creatinine Ratio 9.5 (9.0-21.6); Bilirubin, Total 0.7 mg/dL (0.0-1.1); Blood Urea Nitrogen 55 mg/dL (6-23); Ca. Corrected For Albumin 9.9 mg/dL (8.4-10.2); Calcium * 10.3 mg/dL (7.9-10.9); Carbon Dioxide 16.5 mmol/L (24-32.6); Chloride 106 mmol/L (97-106); Glucose * 121 mg/dL (70-110); Potassium 3.7 mmol/L (3.4-4.6); Salicylate 6.2 mg/dL (2.8-20.0); Sodium 145 mmol/L (132-142); Total Protein 8.3 gm/dL (6.2-8.2)
[2018-11-08 19:01] LABS: Urine Bilirubin 1 mg/dl (NEGATIVE); Urine Blood 250 /ul (NEGATIVE); Urine Ketone 15 mg/dL (NEGATIVE); Urine Nitrite Negative (NEGATIVE); Urine Protein 100 mg/dL (NEGATIVE); Urine Specific Gravity >=1.030 SP.GR. (1.005-1.030); Urine Urobilinogen Normal (NORMAL)
[2018-11-08 19:12] LABS: Urine Amorphous Sediment Moderate - 2+ (NONE-FEW); Urine Appearance Slightly Cloudy (CLEAR); Urine Bacteria 2+; Urine Color Dark Yellow; Urine WBC 0-5 /hpf (0-5)
[2018-11-08 19:17] LABS: Cocaine Ur Negative (NEGATIVE); Urine Barbiturate Negative (NEGATIVE); Urine Benzodiazepines Negative (NEGATIVE); Urine Opiates Negative (NEGATIVE); Urine PCP Negative (NEGATIVE); Urine THC Negative (NEGATIVE)
--- NOTE | 2018-11-08 19:54 | ERNOTE ---
Neuro HPI ER Record Date of Service: 11/08/18 Presenting Symptoms: confusion Time Seen by Provider: 11/08/18 17:04 Source: EMS notes reviewed Exam Limitations: clinical condition Immunizations: IMMUNIZATION HX Immunizations Up to Date Yes History of Influenza Vaccine No Hx Pneumococcal Vaccination No Allergies/Adverse Reactions: Allergies Allergy/AdvReac Type Severity Reaction Status Date / Time erythromycin base Allergy Hives Verified 11/08/18 17:00 Influenza Virus Vaccines Allergy Verified 11/08/18 17:00 Home Medications: HOME MEDICATIONS Multivitamin [One Daily Multivitamin] 1 ea PO DAILY 08/26/16 [Last Taken Unknow n] atenolol 25 mg tablet 25 mg PO BID #60 tab 10/08/17 [Last Taken Unknown] enalapril maleate 20 mg tablet 20 mg PO HS #30 tab 10/08/17 [Last Taken Unknown] quetiapine ER 300 mg tablet,extended release 24 hr 300 mg PO HS #30 tab 12/13/17 [Last Taken Unknown] baclofen 20 mg tablet 20 mg PO QID #120 tab 01/24/18 [Last Taken Unknown] lorazepam 1 mg tablet 1 mg PO QID #120 tab 05/12/18 [Last Taken Unknown] clonidine HCl 0.3 mg tablet 0.3 mg PO TID #90 tab 09/19/18 [Last Taken Unknown] lamotrigine 100 mg tablet 200 mg PO HS #60 tab 09/19/18 [Last Taken Unknown] mupirocin 2 % topical ointment 1 applic TP TID #30 g 09/19/18 [Last Taken Unknown] topiramate 25 mg tablet 25 mg PO HS PRN #30 tab 11/01/18 [Last Taken Unknown] - History of Present Illness Narrative: patient brought to ed by ems acting bizarrely, sister per phone reports patient has been using methamphetamine again Onset: cannot confirm onset Severity: severe Context: other - bizarre activity - Character of Deficits Additional Deficits: Present: impaired speech, decrease ability to stand, decrease ability to walk, off balance Baseline Cognition: Present: alert, oriented x 4 Baseline Gait: Present: walks w/o assistance Associated Symptoms: Reports: altered mental status Prior Treament: Reports: similar symptoms before Review of Systems - Review of Systems Constitutional: Present: See HPI, other - acting bizarrely ENT: Present: no symptoms reported Respiratory: Present: no symptoms reported Cardiology: Present: no symptoms reported Gastrointestinal/Abdominal: Present: no symptoms reported Genitourinary: Present: no symptoms reported Musculoskeletal: Present: no symptoms reported Skin: Present: no symptoms reported Neurological: Present: other - bizarre verbalization Endocrine: Present: no symptoms reported Hematologic/Lymphatic: Present: no symptoms reported Psych: Present: no symptoms reported All Other Systems: All systems neg except as marked Medical History (Updated 10/10/18 @ 00:01 by ) Arthritis Onset Date: Unknown Bipolar illness Onset Date: ~09/10/16 Gait disturbance Onset Date: ~10/30/16 Herniated lumbar intervertebral disc Low back pain Onset Date: ~07/24/16 Neuropathy Onset Date: ~07/15/16 TBI (traumatic brain injury) Onset Date: ~07/10/16 Surgical History: Surgical History (Updated 08/23/17 @ 12:49 by Vijaya Miranda CMA) Hx of appendectomy Onset Date: ~2011 Hx of colonoscopy with polypectomy Onset Date: ~07/21/16 Hx of tonsillectomy Family History: Family History (Updated 08/23/17 @ 12:45 by Vijaya Miranda CMA) Father COPD (chronic obstructive pulmonary disease) Depression Epilepsy JASON (obstructive sleep apnea) Diabetes Mother Migraines Arthritis Fibromyalgia Anemia Social History: (Last Reviewed 11/08/18 @ 17:00 by Danette Milner RN) Social History: Marital status: current occupational status: unemployed Highest education level completed: GED or equivalent Service: No Tobacco: Smoking Status: Current every day smoker tobacco type: cigarettes Alcohol: alcohol intake: current Substance Use: substance use type: marijuana Dietary Habits: caffeine: Yes Physical Exam - Physical Exam General Appearance: Present: anxious Head Exam: Present: normal inspection, no evidence of injury Eye Exam: Normal inspection: bilateral, PERRL: bilateral, EOMI: bilateral Ears, Nose, Throat: Present: normal ENT inspection, normal pharynx Neck: Present: normal inspection, nontender Respiratory: Present: no respiratory distress, normal breath sounds, no accessory muscle use, chest nontender, lungs clear Cardiovascular/Chest: Present: regular rate, rhythm, no murmur, normal peripheral pulses Gastrointestinal/Abdominal: Present: normal bowel sounds, nontender, nondistended, soft, no organomegaly Back Exam: Present: normal inspection, normal range of motion, no CVA tenderness, no vertebral tenderness Extremity Exam: Present: normal inspection, non-tender, normal range of motion, no edema Neurological Exam: Present: disoriented to person, disoriented to time, disoriented to place, disoriented to situation Skin Exam: Present: normal color, warm/dry Lymphatic Exam: Present: no adenopathy Temple Coma Scale - Assess Eye Opening: To Voice Motor: Localizes to Pain Verbal: Inappropriate - Total Coma Scale Total: 11 Progress - Results and Orders Patient's Lab Results:: I have reviewed the patient's lab results. - Vital Signs Patient's Vital Signs:: I have reviewed the patient's vital signs. Vital Signs: Vital Signs 11/08/18 16:57 11/08/18 17:11 11/08/18 17:44 Temperature 37.3 C Pulse Rate 108 H 96 87 Respiratory Rate 27 H 28 H 13 Blood Pressure 97/47 99/48 O2 Sat by Pulse Oximetry 95 95 95 11/08/18 18:55 11/08/18 19:10 Temperature Pulse Rate 89 82 Respiratory Rate 15 11 L Blood Pressure 100/49 97/62 O2 Sat by Pulse Oximetry 95 94 - CT/Ultrasound CT/Ultrasound Narrative: ct normal - Progress/Reassessment Chief Complaint: Altered Mental Status Progress:: Unchanged - Transfer of Care Expected Disposition: Admit Plan - Plan Plan: case discussed case with dr mcdaniels acted for ambition Departure Clinical Impression: Methamphetamine abuse, Renal insufficiency - Departure Disposition: Still a patient Condition: Serious Referrals: Mookie Grimm MD [Primary Care Provider] -
[2018-11-08] MEDS ORDERED: NORMAL SALINE 1,000 ML IV PRN (19:57)
[2018-11-08] MEDS ORDERED: cefTRIAXone SODIUM 1,000 MG/100 ML BAG IV ONE (19:59)
[2018-11-08] MEDS: LORazepam 2 MG/ML DISP.SYRIN IV PRN (23:44)
[2018-11-09] MEDS: LORazepam 2 MG/ML DISP.SYRIN IV PRN ×6 (02:03→22:50)
[2018-11-09] MEDS: NORMAL SALINE 1,000 ML IV PRN ×2 (04:33→11:02)
--- NOTE | 2018-11-09 07:58 | HP ---
Chief Complaint - Chief Complaint Date of Service: 11/09/18 Time of Service: 07:57 Chief Complaint: altered mental status History of Present Illness: Vick Juan is a 43-year-old white male, patient of Dr. Mookie Merritt, with past medical history of bipolar disorder, herniated lumbar disc disease, low back pain, traumatic brain injury, osteoarthritis who was admitted on 11/08/2018 because of altered mental status. I am unable to get the history of present illness from Artur he would mumble but would not respond to my inquiries. Per nurses notes in the emergency room the sister contacted EMS due to behavioral changes. The patient sister said that the patient is a full code. In the emergency room the patient was not answering questions as well and was thrashing around. He was given a total of 3 mg of IV Ativan and was admitted for further evaluation and treatment. He was admitted for methamphetamine abuse as urine drug screen was positive for urine amphetamine, acute renal failure, leukocytosis. This morning the patient is awake with dilated pupils, he would not answer our questions and started getting out of bed. His vital signs are stable Medical History (Updated 11/09/18 @ 08:14 by Sadiq Aviles MD) Arthritis Onset Date: Unknown Bipolar illness Onset Date: ~09/10/16 Gait disturbance Onset Date: ~10/30/16 Herniated lumbar intervertebral disc Low back pain Onset Date: ~07/24/16 Neuropathy Onset Date: ~07/15/16 TBI (traumatic brain injury) Onset Date: ~07/10/16 Surgical History: Surgical History (Updated 11/09/18 @ 07:58 by Sadiq Aviles MD) Hx of appendectomy Onset Date: ~2011 Hx of colonoscopy with polypectomy Onset Date: ~07/21/16 Hx of tonsillectomy Family History: Family History (Updated 08/23/17 @ 12:45 by Vijaya Miranda CMA) Father COPD (chronic obstructive pulmonary disease) Depression Epilepsy JASON (obstructive sleep apnea) Diabetes Mother Migraines Arthritis Fibromyalgia Anemia Social History: (Last Reviewed 11/08/18 @ 17:00 by Danette Milner RN) Social History: Marital status: current occupational status: unemployed Highest education level completed: GED or equivalent Service: No Tobacco: Smoking Status: Current every day smoker tobacco type: cigarettes Alcohol: alcohol intake: current Substance Use: substance use type: marijuana Dietary Habits: caffeine: Yes Review Of Systems (GEN) - Review of Systems Additional Comments: unable to obtain due to patient not answering questions. Immunizations: IMMUNIZATION HX Immunizations Up to Date Yes History of Influenza Vaccine No Hx Pneumococcal Vaccination No Allergies/Adverse Reactions: Allergies Allergy/AdvReac Type Severity Reaction Status Date / Time erythromycin base Allergy Hives Verified 11/08/18 17:00 Influenza Virus Vaccines Allergy Verified 11/08/18 17:00 Home Medications: HOME MEDICATIONS Multivitamin [One Daily Multivitamin] 1 ea PO DAILY 08/26/16 [Last Taken Unknown] atenolol 25 mg tablet 25 mg PO BID #60 tab 10/08/17 [Last Taken Unknown] enalapril maleate 20 mg tablet 20 mg PO HS #30 tab 10/08/17 [Last Taken Unknown] quetiapine ER 300 mg tablet,extended release 24 hr 300 mg PO HS #30 tab 12/13/17 [Last Taken Unknown] baclofen 20 mg tablet 20 mg PO QID #120 tab 01/24/18 [Last Taken Unknown] lorazepam 1 mg tablet 1 mg PO QID #120 tab 05/12/18 [Last Taken Unknown] clonidine HCl 0.3 mg tablet 0.3 mg PO TID #90 tab 09/19/18 [Last Taken Unknown] lamotrigine 100 mg tablet 200 mg PO HS #60 tab 09/19/18 [Last Taken Unknown] mupirocin 2 % topical ointment 1 applic TP TID #30 g 09/19/18 [Last Taken Unknown] topiramate 25 mg tablet 25 mg PO HS PRN #30 tab 11/01/18 [Last Taken Unknown] Exam - Exam Vital Signs: Vital Signs - Last Taken Temp 36.4 C 11/08/18 22:46 Pulse 63 11/09/18 01:55 Resp 18 11/08/18 22:46 BP 107/68 11/08/18 22:46 Pulse Ox 94 11/08/18 22:46 Constitutional: Present: Other - awake, does not respond to questions ENT Exam: Present: other - points his eyes to you when you talk but does not answe, mumbles at time. Eye Exam: left eye: other - dilated Neck: Present: supple Respiratory: Present: decreased breath sounds, No rales, No wheezing Cardiovascular/Chest: Present: regular rate, rhythm, no JVD, no murmur Abdomen: Present: Normal bowel sounds, soft, nontender, nondistended Extremity: Present: no pedal edema, no calf tenderness Skin Exam: Present: skin rash - thigh Neurologic: Present: other - no gross motor /semsory deficits Diagnostic Studies: Abnormal Lab Results 11/08/18 11/08/18 11/08/18 Range/Units 17:15 17:25 17:25 WBC 26.2 H (4.0-10.5) K/mm3 MCH 31.2 H (27-31) pg Neutrophils % (Manual) 85 H (42-75) % Band Neuts % (Manual) 3 H (0-2.0) % Lymphocytes % (Manual) 9 L (20-51) % Neutrophils # (Manual) 22.3 H (1.3-6.0) K/mm3 Sodium 145 H (132-142) mmol/L Plasma Sodium 145 H (130-142) mmol/L Carbon Dioxide 16.5 L (24-32.6) mmol/L Anion Gap 26.2 H (6.8-13.8) mmol/L BUN 55 H D (6-23) mg/dL Creatinine 5.79 H D (0.4-1.4) mg/dL Est GFR (Non-Af Amer) 11 L D (60-130) mL/min Random Glucose 121 H (70-110) mg/dL C-Reactive Prot, Quant 9.4 H (0.0-0.9) mg/dL Total Protein 8.3 H (6.2-8.2) gm/dL Urine Protein (NEGATIVE) mg/dL Urine Blood (NEGATIVE) /ul Urine Bilirubin (NEGATIVE) mg/dl Prot Sulfosalicylic Acd (0) mg/dL Urine RBC (0-5) /hpf Amorphous Sediment (NONE-FEW) Urine Bacteria (NONE) Acetaminophen Less than 0.2 L (10.0-30.0) mcg/mL Urine Amphetamine (NEGATIVE) 11/08/18 11/08/18 Range/Units Unknown Unknown WBC (4.0-10.5) K/mm3 MCH (27-31) pg Neutrophils % (Manual) (42-75) % Band Neuts % (Manual) (0-2.0) % Lymphocytes % (Manual) (20-51) % Neutrophils # (Manual) (1.3-6.0) K/mm3 Sodium (132-142) mmol/L Plasma Sodium (130-142) mmol/L Carbon Dioxide (24-32.6) mmol/L Anion Gap (6.8-13.8) mmol/L BUN (6-23) mg/dL Creatinine (0.4-1.4) mg/dL Est GFR (Non-Af Amer) (60-130) mL/min Random Glucose (70-110) mg/dL C-Reactive Prot, Quant (0.0-0.9) mg/dL Total Protein (6.2-8.2) gm/dL Urine Protein 100 H (NEGATIVE) mg/dL Urine Blood 250 H (NEGATIVE) /ul Urine Bilirubin 1 H (NEGATIVE) mg/dl Prot Sulfosalicylic Acd 3+ H (0) mg/dL Urine RBC 5-10 H (0-5) /hpf Amorphous Sediment Moderate - 2+ H (NONE-FEW) Urine Bacteria 2+ H (NONE) Acetaminophen (10.0-30.0) mcg/mL Urine Amphetamine Positive H (NEGATIVE) Laboratory Results WBC 26.2 K/mm3 (4.0-10.5) H 11/08/18 17:25 RBC 4.78 M/mm3 (4.7-6.0) 11/08/18 17:25 Hgb 14.9 gm/dL (13.5-18.0) 11/08/18 17:25 Hct 42.3 % (42.0-52.0) 11/08/18 17:25 MCV 88.5 fl (78-100) 11/08/18 17:25 MCH 31.2 pg (27-31) H 11/08/18 17:25 MCHC 35.2 g/dl (32-36) 11/08/18 17:25 RDW 13.1 % (11.5-14.0) 11/08/18 17:25 Plt Count 443 K/mm3 (150-450) 11/08/18 17:25 MPV 9.9 fl (8-11.3) 11/08/18 17:25 85 % (42-75) H 11/08/18 17:25 Band Neuts % (Manual) 3 % (0-2.0) H 11/08/18 17:25 9 % (20-51) L 11/08/18 17:25 3 % (0-9) 11/08/18 17:25 22.3 K/mm3 (1.3-6.0) H 11/08/18 17:25 2.4 k/mm3 (1.5-3.5) 11/08/18 17:25 0.8 k/mm3 (0.0-1.0) 11/08/18 17:25 Normal (NORMAL) 11/08/18 17:25 RBC Morphology Normal (NORMAL) 11/08/18 17:25 Sodium 145 mmol/L (132-142) H 11/08/18 17:25 145 mmol/L (130-142) H 11/08/18 17:25 Potassium 3.7 mmol/L (3.4-4.6) 11/08/18 17:25 Chloride 106 mmol/L (97-106) 11/08/18 17:25 Carbon Dioxide 16.5 mmol/L (24-32.6) L 11/08/18 17:25 26.2 mmol/L (6.8-13.8) H 11/08/18 17:25 BUN 55 mg/dL (6-23) H D 11/08/18 17:25 5.79 mg/dL (0.4-1.4) H D 11/08/18 17:25 Est GFR (Non-Af Amer) 11 mL/min (60-130) L D 11/08/18 17:25 9.5 (9.0-21.6) 11/08/18 17:25 121 mg/dL (70-110) H 11/08/18 17:25 1.4 mmol/L (0.4-2.0) 11/08/18 17:15 Calcium 10.3 mg/dL (7.9-10.9) 11/08/18 17:25 Calcium Adj for Albumin 9.9 mg/dL (8.4-10.2) 11/08/18 17:25 0.7 mg/dL (0.0-1.1) 11/08/18 17:25 AST 44 U/L (0-48) 11/08/18 17:25 ALT 28 U/L (19-67) 11/08/18 17:25 117 U/L (50-170) 11/08/18 17:25 Less than 0.017 ng/mL (0.00-0.10) 11/09/18 04:35 C-Reactive Prot, Quant 9.4 mg/dL (0.0-0.9) H 11/08/18 17:15 8.3 gm/dL (6.2-8.2) H 11/08/18 17:25 4.1 gm/dl (3.4-5.0) 11/08/18 17:25 Dark yellow 11/08/18 Unknown Slightly cloudy (CLEAR) 11/08/18 Unknown 5.0 pH (5.0-7.0) 11/08/18 Unknown Ur Specific [place] >=1.030 SP.GR. (1.005-1.030) 11/08/18 Unknown 100 mg/dL (NEGATIVE) H 11/08/18 Unknown Negative mg/dL (NEGATIVE) 11/08/18 Unknown 15 mg/dL (NEGATIVE) 11/08/18 Unknown 250 /ul (NEGATIVE) H 11/08/18 Unknown Negative (NEGATIVE) 11/08/18 Unknown 1 mg/dl (NEGATIVE) H 11/08/18 Unknown Negative (NEGATIVE) 11/08/18 Unknown Prot Sulfosalicylic Acd 3+ mg/dL (0) H 11/08/18 Unknown Normal EU/dl (NORMAL) 11/08/18 Unknown Ur Leukocyte Esterase Negative /ul (NEGATIVE) 11/08/18 Unknown 5-10 /hpf (0-5) H 11/08/18 Unknown 0-5 /hpf (0-5) 11/08/18 Unknown Ur Epithelial Cells 0-5 /hpf (0-5) 11/08/18 Unknown Amorphous Sediment Moderate - 2+ (NONE-FEW) H 11/08/18 Unknown 2+ (NONE) H 11/08/18 Unknown Culture to follow 11/08/18 Unknown Salicylates 6.2 mg/dL (2.8-20.0) 11/08/18 17:25 Negative (NEGATIVE) 11/08/18 Unknown Acetaminophen Less than 0.2 mcg/mL (10.0-30.0) L 11/08/18 17:25 Negative (NEGATIVE) 11/08/18 Unknown Ur Phencyclidine Scrn Negative (NEGATIVE) 11/08/18 Unknown Urine Amphetamine Positive (NEGATIVE) H 11/08/18 Unknown U Benzodiazepines Scrn Negative (NEGATIVE) 11/08/18 Unknown Negative (NEGATIVE) 11/08/18 Unknown Negative (NEGATIVE) 11/08/18 Unknown Ethyl Alcohol Less than 3.0 mg/dL (0.0-10.0) 11/08/18 17:25 Assessment/Plan - Narrative Narrative: Artur Juan was admitted yesterday for altered mental status due to meth amphetamine abuse. He was started on IV fluids and given IV Ativan. His vital signs were stable overnight and he did not become tachypneic, tachycardic or hypertensive. He did not become hyperthermic. He slept most of the night. He was given IV antibiotics for his leukocytosis in the emergency room. We will add CK to his labs drawn yesterday as I feel his ARF is due to rhabdomyolisis from methamphetamine. His leukocytosis could be infectious vs inflammatory in etiology. We will continue with his IVF. We will recheck his BMP, CBC this morning and will sign out to Dr. Mookie Merritt. Consider psych consult but will leave that up with the primary care physician. I am not sure whether we should be calling poison control as it does not look like this is an overdose and he had very little sympathetic reactions and needed very little benzodiazepines. - Assessment/Plan (1) Methamphetamine abuse Problem: Acute (2) ARF (acute renal failure) Assessment: likely due to rhabdomyolysis Problem: Acute (3) Leukocytosis Assessment: inflammatory vs infection Problem: Acute (4) Rash and nonspecific skin eruption Problem: Acute
[2018-11-09 08:11] LABS: Hematocrit 37.1 % (42.0-52.0); Hemoglobin 12.7 gm/dL (13.5-18.0); Mean Cell Volume 89.6 fl (78-100); Mean Corpuscular Hemoglobin 30.7 pg (27-31); Mean Corpuscular Hgb Conc 34.2 g/dl (32-36); Mean Platelet Volume 9.6 fl (8-11.3); Neutrophil # 19.3 K/mm3 (1.3-6.0); Neutrophil % 81.6 % (42-75.0); Platelet Count 327 K/mm3 (150-450); Red Blood Count 4.14 M/mm3 (4.7-6.0); Red Cell Distribution Width 13.3 % (11.5-14.0); White Blood Count 23.7 K/mm3 (4.0-10.5)
[2018-11-09 08:22] LABS: Albumin * 2.9 gm/dl (3.4-5.0); Anion Gap 16.4 mmol/L (6.8-13.8); BUN/Creatinine Ratio 20.5 (9.0-21.6); Bilirubin, Total 0.4 mg/dL (0.0-1.1); Ca. Corrected For Albumin 8.9 mg/dL (8.4-10.2); Calcium * 8.3 mg/dL (7.9-10.9); Carbon Dioxide 19.4 mmol/L (24-32.6); Potassium 3.8 mmol/L (3.4-4.6); Total Protein 6.2 gm/dL (6.2-8.2)
[2018-11-09] MEDS: ENOXAPARIN SODIUM 40 MG/0.4 ML SYRG SC SCH (09:04)
--- NOTE | 2018-11-09 12:11 | PN ---
Subjective - Date and Time Seen Date: 11/09/18 Time: 11:41 Subjective Narrative: Just a short while ago a history and physical exam from Dr. Aviles became available in this record. He did the history and physical earlier this morning. Because I did not know about it, I have completed my own history and physical exam. I will convert it to a progress note instead. This 43-year-old male was admitted through our emergency room last night because of altered mental status. Neither I nor Dr. Aviles have been able to get any kind of oral history from him. It is been over 18 months since I have seen him. It is uncertain at this point whether or not he is still getting any of his prescriptions. According to his sister he is full code. His sister is not present right now. Based on nursing report, he is about the same as last night when he reached the medical surgical floor. Apparently he has resumed using methamphetamine, form and dose unknown. In the emergency room he was also found to have acute renal failure and leukocytosis. Both are improved this morning, although the leukocytosis only dropped from 26,000-23,000. He received 1 dose of Rocephin, ordered by the emergency room doctor. He continues to not speak. He will open up his eyes to voice. He did move when I was examining him: Covered his eyes with his hands when I turn the light on, and tried to get out of bed. He is incontinent of bowel and bladder. Objective Objective Narrative: Unable to provide a review of systems. - Vitals Vitals: Last Vital Signs Temp 36.8 C 11/09/18 08:36 Pulse 67 11/09/18 09:43 Resp 9 L 11/09/18 08:36 BP 130/80 11/09/18 08:36 Pulse Ox 98 11/09/18 08:36 - Abnormal Lab Findings Abnormal Lab Findings: Abnormal Lab Results 11/08/18 11/08/18 11/08/18 Range/Units 07:28 17:15 17:25 WBC 26.2 H (4.0-10.5) K/mm3 RBC (4.7-6.0) M/mm3 Hgb (13.5-18.0) gm/dL Hct (42.0-52.0) % MCH 31.2 H (27-31) pg Immature Gran % (Auto) (0.001-0.429) % Immature Gran # (Auto) (0.000-0.0310) K/mm3 Neutrophils % (42-75.0) % Neutrophils % (Manual) 85 H (42-75) % Band Neuts % (Manual) 3 H (0-2.0) % Lymphocytes % (20-51) % Lymphocytes % (Manual) 9 L (20-51) % Neutrophils # (1.3-6.0) K/mm3 Neutrophils # (Manual) 22.3 H (1.3-6.0) K/mm3 Monocytes # (0.0-1.0) k/mm3 Sodium (132-142) mmol/L Plasma Sodium (130-142) mmol/L Chloride (97-106) mmol/L Carbon Dioxide (24-32.6) mmol/L Anion Gap (6.8-13.8) mmol/L BUN (6-23) mg/dL Creatinine (0.4-1.4) mg/dL Est GFR (Non-Af Amer) (60-130) mL/min Random Glucose (70-110) mg/dL ALT (19-67) U/L Creatine Kinase 1117 H (0-259) U/L C-Reactive Prot, Quant 9.4 H (0.0-0.9) mg/dL Total Protein (6.2-8.2) gm/dL Albumin (3.4-5.0) gm/dl Procalcitonin (0.05-0.50) ng/mL Urine Protein (NEGATIVE) mg/dL Urine Blood (NEGATIVE) /ul Urine Bilirubin (NEGATIVE) mg/dl Prot Sulfosalicylic Acd (0) mg/dL Urine RBC (0-5) /hpf Amorphous Sediment (NONE-FEW) Urine Bacteria (NONE) Acetaminophen (10.0-30.0) mcg/mL Urine Amphetamine (NEGATIVE) 11/08/18 11/08/18 11/08/18 Range/Units 17:25 Unknown Unknown WBC (4.0-10.5) K/mm3 RBC (4.7-6.0) M/mm3 Hgb (13.5-18.0) gm/dL Hct (42.0-52.0) % MCH (27-31) pg Immature Gran % (Auto) (0.001-0.429) % Immature Gran # (Auto) (0.000-0.0310) K/mm3 Neutrophils % (42-75.0) % Neutrophils % (Manual) (42-75) % Band Neuts % (Manual) (0-2.0) % Lymphocytes % (20-51) % Lymphocytes % (Manual) (20-51) % Neutrophils # (1.3-6.0) K/mm3 Neutrophils # (Manual) (1.3-6.0) K/mm3 Monocytes # (0.0-1.0) k/mm3 Sodium 145 H (132-142) mmol/L Plasma Sodium 145 H (130-142) mmol/L Chloride (97-106) mmol/L Carbon Dioxide 16.5 L (24-32.6) mmol/L Anion Gap 26.2 H (6.8-13.8) mmol/L BUN 55 H D (6-23) mg/dL Creatinine 5.79 H D (0.4-1.4) mg/dL Est GFR (Non-Af Amer) 11 L D (60-130) mL/min Random Glucose 121 H (70-110) mg/dL ALT (19-67) U/L Creatine Kinase (0-259) U/L C-Reactive Prot, Quant (0.0-0.9) mg/dL Total Protein 8.3 H (6.2-8.2) gm/dL Albumin (3.4-5.0) gm/dl Procalcitonin (0.05-0.50) ng/mL Urine Protein 100 H (NEGATIVE) mg/dL Urine Blood 250 H (NEGATIVE) /ul Urine Bilirubin 1 H (NEGATIVE) mg/dl Prot Sulfosalicylic Acd 3+ H (0) mg/dL Urine RBC 5-10 H (0-5) /hpf Amorphous Sediment Moderate - 2+ H (NONE-FEW) Urine Bacteria 2+ H (NONE) Acetaminophen Less than 0.2 L (10.0-30.0) mcg/mL Urine Amphetamine Positive H (NEGATIVE) 11/09/18 11/09/18 11/09/18 Range/Units 07:54 08:00 08:00 WBC 23.7 H (4.0-10.5) K/mm3 RBC 4.14 L (4.7-6.0) M/mm3 Hgb 12.7 L (13.5-18.0) gm/dL Hct 37.1 L (42.0-52.0) % MCH (27-31) pg Immature Gran % (Auto) 0.80 H (0.001-0.429) % Immature Gran # (Auto) 0.20 H (0.000-0.0310) K/mm3 Neutrophils % 81.6 H (42-75.0) % Neutrophils % (Manual) (42-75) % Band Neuts % (Manual) (0-2.0) % Lymphocytes % 10.1 L (20-51) % Lymphocytes % (Manual) (20-51) % Neutrophils # 19.3 H (1.3-6.0) K/mm3 Neutrophils # (Manual) (1.3-6.0) K/mm3 Monocytes # 1.4 H (0.0-1.0) k/mm3 Sodium 147 H (132-142) mmol/L Plasma Sodium 147 H (130-142) mmol/L Chloride 115 H (97-106) mmol/L Carbon Dioxide 19.4 L (24-32.6) mmol/L Anion Gap 16.4 H (6.8-13.8) mmol/L BUN 40 H (6-23) mg/dL Creatinine 1.95 H D (0.4-1.4) mg/dL Est GFR (Non-Af Amer) 40 L D (60-130) mL/min Random Glucose (70-110) mg/dL ALT 18 L (19-67) U/L Creatine Kinase (0-259) U/L C-Reactive Prot, Quant (0.0-0.9) mg/dL Total Protein (6.2-8.2) gm/dL Albumin 2.9 L (3.4-5.0) gm/dl Procalcitonin 1.09 H (0.05-0.50) ng/mL Urine Protein (NEGATIVE) mg/dL Urine Blood (NEGATIVE) /ul Urine Bilirubin (NEGATIVE) mg/dl Prot Sulfosalicylic Acd (0) mg/dL Urine RBC (0-5) /hpf Amorphous Sediment (NONE-FEW) Urine Bacteria (NONE) Acetaminophen (10.0-30.0) mcg/mL Urine Amphetamine (NEGATIVE) Comments:: His white blood count dropped from 26.2-23.7 since he was admitted. The drop is not very large, and is most likely related to rehydration. Likewise, his hemoglobin dropped from 14.9-12.7. His platelet count from 443-327. He has a few bands last night and this morning. His sodium has increased from 145-147. His CO2 has risen from 16.5-19.4. His anion gap has dropped from 26.2-16.4. His creatinine has vitals are stable dropped from 5.79-1.95. His CRP was 9.4 in the ER, his total protein dropped from 8.3-6.2 and his albumin dropped from 4.1- 2.9. His procalcitonin was minimally elevated at 1.09. Both his chest x-ray and urine are okay. Urine culture is pending. Blood culture is pending. His head CT showed only a small air-fluid level in his left maxillary sinus. His lactic acid level is normal. Serial troponins are normal. Vitals are st able. - Exam Constitutional: Present: Well developed, Well nourished, Other - He is responsive only to touch and voice. He is able to sit up. He becomes mildly agitated when disturbed. His pupils are widely dilated and equal bilaterally. ENT Exam: Present: normal ENT inspection Neck: Present: normal inspection. Absent: lymphadenopathy (R), lymphadenopathy (L), thyromegaly Breasts: Present: Exam deferred Respiratory: Present: lungs clear, no respiratory distress Cardiovascular/Chest: Present: regular rate, rhythm, no edema, no gallop, no JVD, no murmur Abdomen: Present: Normal bowel sounds, soft, nondistended, no hepatospenomegaly, no masses /Rectal: Present: Exam deferred Extremity: Present: normal inspection, no pedal edema, normal capillary refill Skin Exam: Present: normal color, warm/dry, no cyanosis, other - No sign of cellulitis Lymphatic: Present: no adenopathy Neurologic: Present: other - See descriptions above Appearance: Present: appropriate appearance, other - Unable to provide Eye contact: Present: other - No apparent eye contact Thoughts: Present: other - Unable to provide Assessment/Plan - Problems/Diagnosis (1) Acute alteration in mental status Problem: Acute Narrative: May be solely related to his methamphetamine abuse. Associated with an elevated white blood count, which is higher than I would expect from methamphetamine abuse or overdose alone. As he is nonverbal, at this point meningitis cannot be ruled out. Therefore we will obtain cerebral spinal fluid in order to answer this question. We will continue his IV Rocephin for the present. It would be a good initial choice for adult meningitis, plus he also has left maxillary sinusitis. We would switch to oral antibiotics as soon as he is able to take things by mouth. Otherwise we will provide supportive care. (2) Leukocytosis Problem: Acute Qualifiers: Leukocytosis type: bandemia Qualified Code(s): D72.825 - Bandemia Narrative: Leukocytosis with only a small number of bands. (3) Acute renal failure Problem: Acute Qualifiers: Acute renal failure type: unspecified Qualified Code(s): N17.9 - Acute kidney failure, unspecified Narrative: His creatinine has substantially improved. We will continue to monitor that. (4) Methamphetamine abuse Problem: Acute (5) Left maxillary sinusitis Problem: Acute (6) Hypernatremia Problem: Acute Narrative: We will adjust IV fluids to D5 and half-normal saline. We will follow electrolytes.
[2018-11-09 13:13] LABS: Hematocrit 35.4 % (42.0-52.0); Hemoglobin 12.4 gm/dL (13.5-18.0); Mean Cell Volume 88.7 fl (78-100); Mean Corpuscular Hemoglobin 31.1 pg (27-31); Mean Platelet Volume 9.4 fl (8-11.3); Neutrophil # 17.2 K/mm3 (1.3-6.0); Platelet Count 309 K/mm3 (150-450); Red Blood Count 3.99 M/mm3 (4.7-6.0); Red Cell Distribution Width 13.5 % (11.5-14.0); White Blood Count 20.9 K/mm3 (4.0-10.5)
[2018-11-09] MEDS ORDERED: LORazepam 2 MG/ML DISP.SYRIN IV ONE (14:38)
--- NOTE | 2018-11-09 15:32 | ANES ---
Anesthesia Procedure Note Procedure Note: ANESTHESIA PROCEDURE NOTE Date of procedure: 11/09/2018. Time of procedure: 1500. Performed by: Denis Crespo CRNA Light Adjuster: Mena Bartholomew RN . Preprocedure diagnosis: Altered mental status. Post procedure diagnosis: Same. Procedure: Lumbar puncture Indications: Spinal fluid analysis. Spinal fluid pressure reading.. Findings: Patient placed in the right lateral decubitus position. Back was prepped with DuraPrep. 3 mL of 1% lidocaine was injected into the skin and subcutaneous tissue at the L3-4 interspace. A 22-gauge Dali spinal needle was used to puncture the dura. Opening pressure measured at 19. A total of 8 mL of clear CSF was obtained, 2 mL in each of 4 vials. Spinal needle was removed intact. EBL: Minimal. Fluids: N/A. Specimen: N/A. Post procedure condition: The patient tolerated the procedure well. No complications were noted. Thank you for this consultation Denis Crespo CRNA
--- NOTE | 2018-11-09 17:02 | PN ---
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 To rule out other problems he has had a head CT and we have ordered a lumbar puncture, to r/o meningitis due to his altered mental status and leukocytosis. WBC count seems higher than I would expect from methamphetamine abuse alone. Care will otherwise be supportive, including IV lorazepam as needed for agitation. He also has severe acute renal failure, which we have thusfar successfully with IV fluids. Please see the creatinine yesterday, compare with today's. We will continue IV fluids and will monitor kidney function. The ER started IV Rocephin last evening. We will continue it given his elevated wbc count, and also left maxillary sinusitis on head CT. Should he have meningitis, the Rocephin is a reasonable choice for treatment.
--- NOTE | 2018-11-09 17:07 | PN ---
Progess Note - Interim Date: 11/09/18 Time: 17:05 Narrative: 11/09/18 17:05 He also has rhabdomyolysis as evidenced by CPK 1117 in the setting of methamphetamine abuse. Rhabdomyolysis is common in methamphetamine overdose. Treatment will be IVFs and monitoring CPK and renal function.
[2018-11-09 17:08] LABS: CSF Appearance Clear (CLEAR); CSF Color Colorless (COLORLESS); CSF RBC 0 /uL (0-10)
[2018-11-09 17:09] LABS: CSF Lymphocytes 50 % (0-100); CSF WBC 28 /uL (0-10)
[2018-11-09] MEDS: DEXTROSE 5%-0.5 NORMAL SALINE 1,000 ML IV PRN (21:12)
[2018-11-10] MEDS: LORazepam 2 MG/ML DISP.SYRIN IV PRN ×8 (01:38→23:38)
[2018-11-10 06:52] LABS: Hematocrit 34.4 % (42.0-52.0); Hemoglobin 11.8 gm/dL (13.5-18.0); Mean Cell Volume 90.3 fl (78-100); Mean Corpuscular Hgb Conc 34.3 g/dl (32-36); Mean Platelet Volume 9.3 fl (8-11.3); Neutrophil # 11.3 K/mm3 (1.3-6.0); Neutrophil % 75.8 % (42-75.0); Platelet Count 261 K/mm3 (150-450); Red Blood Count 3.81 M/mm3 (4.7-6.0); Red Cell Distribution Width 13.4 % (11.5-14.0); White Blood Count 14.9 K/mm3 (4.0-10.5)
[2018-11-10] MEDS: DEXTROSE 5%-0.5 NORMAL SALINE 1,000 ML IV PRN (07:02)
[2018-11-10 07:05] LABS: Anion Gap 14.6 mmol/L (6.8-13.8); BUN/Creatinine Ratio 21.4 (9.0-21.6); Calcium * 8.3 mg/dL (7.9-10.9); Carbon Dioxide 21.6 mmol/L (24-32.6); Estimated Creat Clear 92.4; Potassium 3.2 mmol/L (3.4-4.6)
[2018-11-10] MEDS ORDERED: POTASSIUM CHLORIDE 10 MEQ in DEXTROSE 5%-0.5 NORMAL SALINE 1,000 ML IV SCH (07:54)
[2018-11-10] MEDS: ENOXAPARIN SODIUM 40 MG/0.4 ML SYRG SC SCH (09:30)
[2018-11-10] MEDS ORDERED: ZIPRASIDONE MESYLATE 20 MG VIAL IM PRN ×4 (10:29→13:39)
--- NOTE | 2018-11-10 12:00 | PN ---
Subjective - Date and Time Seen Date: 11/10/18 Time: 11:45 Subjective Narrative: This 43-year-old male was admitted through our emergency room 2 nights ago because of altered mental status. I am still not able to get any kind of oral history from him. It is been over 18 months since I have seen him. It is uncertain at this point whether or not he is still getting any of his prescriptions. According to his sister he is full code. His sister is not present right now. Earlier today his brother was present, but is not present now. Based on nursing report, he remains agitated intermittently. Lorazepam seems to have no effect.. Apparently he has resumed using methamphetamine, form and dose unknown. Leukocytosis and kidney function continue to improve. He received 1 dose of Rocephin, ordered by the emergency room doctor. He continues to not speak. He will not open up his eyes to voice or touch (has received a dose of Geodon), but he does respond to painful stimulus. We switched to Geodon because his lorazepam was not effective.. He is incontinent of bowel and bladder. I strongly doubt that he has meningitis, which is 1 of our diagnostic concerns. His CSF fluid glucose and protein were normal, but it did have 28 WBCs and 50% of that were neutrophils. This is a very small elevation. Gram stain showed no bacteria and just a few WBCs. He did have sinusitis on his CT scan of the head, so for now we will continue the Rocephin IV. When he is able to take oral, we will switch to levofloxacin. Objective Objective Narrative: His white blood count has gone from 20.9-14.9, hemoglobin from 12.4-11.8, platelet count from 309-261. Sodium is gone from 147-150, potassium from 3.8- 3.2, CO2 from 19.4-21.6, creatinine 0.98. CK 273. His anion gap is also improved. His most recent vitals show temperature 36.8, blood pressure 140/85, pulse 72, and respiratory rate 17. CK is minimally elevated. He is mildly anemic, normocytic normochromic. We will simply monitor this. - Review of Systems Generalized/Overall Review: Reports: No Symptoms Reported - Does not talk. - Vitals Vitals: Last Vital Signs Temp 36.9 C 11/10/18 00:00 Pulse 67 10/03/19 01:57 Resp 14 11/10/18 00:00 BP 155/84 H 11/10/18 00:00 Pulse Ox 99 11/10/18 00:00 - Abnormal Lab Findings Abnormal Lab Findings: Abnormal Lab Results 11/09/18 11/09/18 11/10/18 Range/Units 13:05 15:30 06:51 WBC 20.9 H 14.9 H D (4.0-10.5) K/mm3 RBC 3.99 L 3.81 L (4.7-6.0) M/mm3 Hgb 12.4 L 11.8 L (13.5-18.0) gm/dL Hct 35.4 L 34.4 L (42.0-52.0) % MCH 31.1 H (27-31) pg Immature Gran % (Auto) 0.70 H 0.60 H (0.001-0.429) % Immature Gran # (Auto) 0.14 H 0.09 H (0.000-0.0310) K/mm3 Neutrophils % 82.0 H 75.8 H (42-75.0) % Lymphocytes % 10.1 L 14.2 L (20-51) % Neutrophils # 17.2 H 11.3 H (1.3-6.0) K/mm3 Monocytes # 1.1 H (0.0-1.0) k/mm3 Sodium (132-142) mmol/L Plasma Sodium (130-142) mmol/L Potassium (3.4-4.6) mmol/L Chloride (97-106) mmol/L Carbon Dioxide (24-32.6) mmol/L Anion Gap (6.8-13.8) mmol/L Creatine Kinase (0-259) U/L CSF WBC 28 H* (0-10) /uL CSF Neutrophils 50 H (0-0) % 11/10/18 Range/Units 06:51 WBC (4.0-10.5) K/mm3 RBC (4.7-6.0) M/mm3 Hgb (13.5-18.0) gm/dL Hct (42.0-52.0) % MCH (27-31) pg Immature Gran % (Auto) (0.001-0.429) % Immature Gran # (Auto) (0.000-0.0310) K/mm3 Neutrophils % (42-75.0) % Lymphocytes % (20-51) % Neutrophils # (1.3-6.0) K/mm3 Monocytes # (0.0-1.0) k/mm3 Sodium 150 H (132-142) mmol/L Plasma Sodium 150 H (130-142) mmol/L Potassium 3.2 L (3.4-4.6) mmol/L Chloride 117 H (97-106) mmol/L Carbon Dioxide 21.6 L (24-32.6) mmol/L Anion Gap 14.6 H (6.8-13.8) mmol/L Creatine Kinase 273 H (0-259) U/L CSF WBC (0-10) /uL CSF Neutrophils (0-0) % - Exam Constitutional: Present: Well developed, Well nourished, Obtunded - Response to pain ENT Exam: Present: normal ENT inspection Neck: Present: normal inspection. Absent: lymphadenopathy (R), lymphadenopathy (L), thyromegaly Respiratory: Present: lungs clear, no respiratory distress Cardiovascular/Chest: Present: normal peripheral pulses, regular rate, rhythm, no edema, no JVD, no murmur Abdomen: Present: Normal bowel sounds, soft, nondistended, no hepatospenomegaly, no masses /Rectal: Present: Exam deferred Extremity: Present: normal inspection, no pedal edema Skin Exam: Present: normal color, warm/dry, no cyanosis Lymphatic: Present: no adenopathy Neurologic: Absent: alert Appearance: Present: appropriate appearance, neat Eye contact: Present: other - Obtunded Thoughts: Present: other - Obtunded Assessment/Plan - Problems/Diagnosis (1) Acute alteration in mental status Problem: Acute Narrative: Lorazepam has not been helpful so we have switched to Geodon. 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 Care will be supportive, including IV lorazepam as needed for agitation. (2) Leukocytosis Problem: Acute Qualifiers: Leukocytosis type: bandemia Qualified Code(s): D72.825 - Bandemia Narrative: Bandemia improving we will continue to monitor (3) Acute renal failure Problem: Resolved Qualifiers: Acute renal failure type: unspecified Qualified Code(s): N17.9 - Acute kidney failure, unspecified (4) Methamphetamine abuse Problem: Acute (5) Left maxillary sinusitis Problem: Acute Narrative: We will continue antibiotics (6) Hypernatremia Problem: Acute Narrative: We will switch to D5W with 20 mEq of potassium at 75/h (7) Hypokalemia Problem: Acute Narrative: We will switch to D5W with 20 mEq of potassium at 75 mL's per hour (8) Meningitis Problem: Ruled-out (9) Normochromic normocytic anemia Problem: Acute Narrative: His anemia is minimal. We will simply follow that along for the time being.
[2018-11-10] MEDS ORDERED: POTASSIUM CHLORIDE 20 MEQ in DEXTROSE 5 % IN WATER 1,000 ML IV PRN ×2 (12:07)
[2018-11-10] MEDS ORDERED: POTASSIUM CHLORIDE 20 MEQ in DEXTROSE 5 % IN WATER 1,000 ML IV SCH ×4 (12:45)
--- NOTE | 2018-11-10 18:49 | PN ---
Estelle Note - Interim Date: 11/10/18 Time: 18:43 Narrative: 11/10/18 18:43 For the first time I spoke with his brother this evening and explained what we thought and what was going on. Because this alteration of mental status has been unimproved over the course of his stay, I have been thinking about transfer to a higher level of care. (But he did say one word to his brother, which is more than he said since admission, and when I said hello to him he turned his head towards me, which is also new). First I called [facility] in [facility], and the neurologist there thought it would be better taken care of at the [facility]. I did speak with the on-call neurologist [facility] this evening. They are willing to accept him, but an open bed may be an issue. She suggested adding acyclovir and doing an EEG tomorrow morning, both of which we will do. I explained our plan to his brother this evening. His brother told me that he has generally used methamphetamine by injection. He is concerned about STD risk, so we will check HIV hepatitis C and VDRL tomorrow morning. One way or another tomorrow morning there will be communication back and forth between [facility] and [facility]. Probably at that time we will arrange transfer if they have an open bed. His brother is also aware that that is the direction we want to go.
[2018-11-10] MEDS: HALOPERIDOL LACTATE 5 MG/ML VIAL IM PRN (19:36)
[2018-11-10] MEDS: NORMAL SALINE IV SCH (20:56)
[2018-11-10] MEDS: ACYCLOVIR SODIUM IV SCH (20:56)
[2018-11-11] MEDS: LORazepam 2 MG/ML DISP.SYRIN IV PRN ×8 (00:47→11:42)
[2018-11-11] MEDS: HALOPERIDOL LACTATE 5 MG/ML VIAL IM PRN ×2 (01:47→08:01)
[2018-11-11] MEDS: NORMAL SALINE IV SCH ×2 (03:49→12:20)
[2018-11-11] MEDS: ACYCLOVIR SODIUM IV SCH ×2 (03:49→12:20)
[2018-11-11 06:15] LABS: Hemoglobin 12.4 gm/dL (13.5-18.0); Mean Cell Volume 89.6 fl (78-100); Mean Corpuscular Hemoglobin 30.8 pg (27-31); Mean Corpuscular Hgb Conc 34.4 g/dl (32-36); Mean Platelet Volume 9.5 fl (8-11.3); Neutrophil # 9.4 K/mm3 (1.3-6.0); Platelet Count 272 K/mm3 (150-450); Red Blood Count 4.02 M/mm3 (4.7-6.0); Red Cell Distribution Width 13.3 % (11.5-14.0); White Blood Count 13.1 K/mm3 (4.0-10.5)
[2018-11-11 06:29] LABS: ALT 18 U/L (19-67); AST 22 U/L (0-48); Albumin * 2.8 gm/dl (3.4-5.0); Alkaline Phosphatase * 85 U/L (50-170); BUN/Creatinine Ratio 11.5 (9.0-21.6); Bilirubin Direct 0.2 mg/dL (0.0-0.3); Bilirubin, Total 0.7 mg/dL (0.0-1.1); Bilirubin,Indirect 0.5 mg/dL (0.1-0.7); Blood Urea Nitrogen 10 mg/dL (6-23); Calcium * 8.4 mg/dL (7.9-10.9); Chloride 116 mmol/L (97-106); Estimated Creat Clear 104.1; Glucose * 96 mg/dL (70-110); Sodium 147 mmol/L (132-142)
--- NOTE | 2018-11-11 07:23 | PN ---
Subjective - Date and Time Seen Date: 11/11/18 Time: 07:22 Subjective Narrative: This 43-year-old male was admitted through our emergency room 2 nights ago because of altered mental status. I am still not able to get any kind of oral history from him. It is been over 18 months since I have seen him. It is uncertain at this point whether or not he is still getting any of his prescriptions. According to his sister he is full code. His sister is not present right now. Earlier today his brother was present, but is not present now. Based on nursing report, he remains agitated intermittently. Lorazepam seems to have no effect.. Apparently he has resumed using methamphetamine, form and dose unknown. Leukocytosis and kidney function continue to improve. He received 1 dose of Rocephin, ordered by the emergency room doctor. He continues to not speak. He will not open up his eyes to voice or touch (has received a dose of Geodon), but he does respond to painful stimulus. We switched to Geodon because his lorazepam was not effective.. He is incontinent of bowel and bladder. I strongly doubt that he has meningitis, which is 1 of our diagnostic concerns. His CSF fluid glucose and protein were normal, but it did have 28 WBCs and 50% of that were neutrophils. This is a very small elevation. Gram stain showed no bacteria and just a few WBCs. He did have sinusitis on his CT scan of the head, so for now we will continue the Rocephin IV. When he is able to take oral, we will switch to levofloxacin. Objective - Vitals Vitals: Last Vital Signs Temp 36.6 C 11/11/18 03:00 Pulse 66 11/11/18 03:00 Resp 16 11/11/18 03:00 BP 142/88 H 11/11/18 03:00 Pulse Ox 96 11/11/18 03:00 - Abnormal Lab Findings Abnormal Lab Findings: Abnormal Lab Results 11/11/18 11/11/18 Range/Units 06:05 06:05 WBC 13.1 H (4.0-10.5) K/mm3 RBC 4.02 L (4.7-6.0) M/mm3 Hgb 12.4 L (13.5-18.0) gm/dL Hct 36.0 L (42.0-52.0) % Immature Gran % (Auto) 0.50 H (0.001-0.429) % Immature Gran # (Auto) 0.07 H (0.000-0.0310) K/mm3 Lymphocytes % 17.7 L (20-51) % Eosinophils % 3.4 H (0.0-3.0) % Neutrophils # 9.4 H (1.3-6.0) K/mm3 Sodium 147 H (132-142) mmol/L Plasma Sodium 147 H (130-142) mmol/L Potassium 3.0 L (3.4-4.6) mmol/L Chloride 116 H (97-106) mmol/L Carbon Dioxide 23.0 L (24-32.6) mmol/L ALT 18 L (19-67) U/L Total Protein 6.0 L (6.2-8.2) gm/dL Albumin 2.8 L (3.4-5.0) gm/dl Assessment/Plan - Problems/Diagnosis (1) Acute alteration in mental status Problem: Acute (2) Leukocytosis Problem: Acute Qualifiers: Leukocytosis type: bandemia Qualified Code(s): D72.825 - Bandemia (3) Acute renal failure Problem: Resolved Qualifiers: Acute renal failure type: unspecified Qualified Code(s): N17.9 - Acute kidney failure, unspecified (4) Methamphetamine abuse Problem: Acute (5) Left maxillary sinusitis Problem: Acute (6) Hypernatremia Problem: Acute (7) Hypokalemia Problem: Acute (8) Meningitis Problem: Ruled-out (9) Normochromic normocytic anemia Problem: Acute
[2018-11-11] MEDS ORDERED: POTASSIUM CHLORIDE 40 MEQ in DEXTROSE 5 % IN WATER 1,000 ML IV SCH ×2 (07:30)
--- NOTE | 2018-11-11 07:49 | DS ---
Transfer Discharge Summary - Diagnosis(s)/Problems (1) Acute alteration in mental status Problem: Acute (2) Leukocytosis Problem: Acute (3) Acute renal failure Problem: Resolved (4) Methamphetamine abuse Problem: Acute (5) Left maxillary sinusitis Problem: Acute (6) Hypernatremia Problem: Acute (7) Hypokalemia Problem: Acute (8) Meningitis Problem: Ruled-out (9) Normochromic normocytic anemia Problem: Acute - Course Description of Stay: This 43-year-old male was admitted through our emergency room 3 nights ago because of altered mental status. I am still not able to get any kind of oral history from him. It is been over 18 months since I have seen him in the office. It is uncertain at this point whether or not he is still getting any of his prescriptions. According to his sister he is full code, which last evening his brother confirmed. He was sent to our emergency room 3 nights ago because his sister found him to be agitated and incoherent at home. In the emergency room he was mumbling and somewhat agitated. Since the emergency room he spoke he was mute, though yesterday he spoke one-word. Last night he said water several times.. He has required sedation ever since he was admitted. He remains restless and agitated when his sedation wears off. His sister reported he had once again started injectable methamphetamine. He has had no fever. His vitals have been stable. His white blood count initially in the emergency room was 26,000 with 3 bands. His creatinine was close to 6. We rehydrated him, and his creatinine is down to normal and his white blood count is close to normal. Brain CT scan and MRI both showed only left maxillary sinusitis. Chest x-ray was normal. Urinalysis was normal. Final culture was negative. So far blood culture and CSF culture are negative. His spinal tap showed 28 white blood cells no RBCs and 50% of the white blood cells were neutrophils. He received 1 dose of Rocephin, ordered by the emergency room doctor. We continued the IV Rocephin daily. We used lorazepam because of his restlessness and agitation. That worked initially, and then lost its effectiveness. We tried 1 dose of IM Geodon, which did not help. We then switched to Haldol which did help, especially if we gave it at the same time with the lorazepam. He is incontinent of bowel and bladder. My working diagnosis has been ongoing mental status changes unit due to methamphetamine overdose. His urine drug screen was positive for amphetamines in the emergency room. My concern now is that he is still having these mental status changes 3 days after his admission to the hospital. Source of leukocytosis may have been stress and dehydration. Source for infection is unclear although he does have maxillary sinusitis. Because of my concern about the persistence of his mental status changes, I decided that transfer to higher level of care would be best. I spoke with the neurologist at [facility] in [facility] last evening who said that more likely he is a candidate for the [facility]. I called them and they recommended the addition of acyclovir, which I did last night, and an EEG. They are willing to accept him, but they are uncertain about whether they have a bed. This morning, since we need to transfer to the closest accepting hospital, I called [facility] in [place] and their hospitalist Dr. Aguirre agreed to accept him in transfer. Arrangements are being made. Procedures Performed: see notes below - LP per anesthesia - Results and Findings Results and Findings: Laboratory Results - last 24 hr 11/09/18 11/11/18 11/11/18 08:00 06:05 06:05 WBC 13.1 H RBC 4.02 L Hgb 12.4 L Hct 36.0 L MCV 89.6 MCH 30.8 MCHC 34.4 RDW 13.3 Plt Count 272 MPV 9.5 Immature Gran % (Auto) 0.50 H Immature Gran # (Auto) 0.07 H Neutrophils % 72.0 Lymphocytes % 17.7 L Monocytes % 6.1 Eosinophils % 3.4 H Basophils % 0.3 Nucleated RBC % 0.0 Neutrophils # 9.4 H Lymphocytes # 2.31 Monocytes # 0.8 Eosinophils # 0.5 Absolute Basophils 0.0 Sodium 147 H Plasma Sodium 147 H Potassium 3.0 L Chloride 116 H Carbon Dioxide 23.0 L Anion Gap 11.0 BUN 10 D Creatinine 0.87 Est GFR (Non-Af Amer) 101 BUN/Creatinine Ratio 11.5 Random Glucose 96 Calcium 8.4 Total Bilirubin 0.7 Direct Bilirubin 0.2 Indirect Bilirubin 0.5 AST 22 ALT 18 L Alkaline Phosphatase 85 Total Protein 6.0 L Albumin 2.8 L Lyme Ab (IFA) Comment Less than 0.90 - Medications Medications: Active Medications Enoxaparin Sodium (Lovenox) 40 mg SC Q24H [facility] Stop: 12/09/18 08:31 Last Admin: 11/10/18 09:30 Dose: 40 mg Documented by: Haloperidol Lactate (Haldol) 5 mg IM Q6H PRN PRN Reason: Anxiety Stop: 12/10/18 13:44 Last Admin: 11/11/18 01:47 Dose: 5 mg Documented by: Ceftriaxone Sodium 1,000 mg/ (Dextrose/Water) 100 mls @ 200 mls/hr IV Q24H [facility]; Protocol Stop: 12/09/18 11:31 Last Infusion: 11/10/18 20:34 Dose: Infused Documented by: Acyclovir Sodium 640 mg/ (Sodium Chloride) 112.8 mls @ 100 mls/hr IV Q8H [facility] Stop: 12/10/18 19:01 Last Infusion: 11/11/18 04:57 Dose: Infused Documented by: Lorazepam (Ativan) 4 mg IV Q1H PRN PRN Reason: Anxiety Stop: 12/09/18 18:53 Last Admin: 11/11/18 06:36 Dose: 4 mg Documented by: Discontinued Medications Sodium Chloride (Sodium Chloride 0.9%) 1,000 mls @ 999 mls/hr IV .Q1H1M ONE Stop: 11/08/18 18:13 Last Infusion: 11/08/18 18:25 Dose: Infused Documented by: Sodium Chloride (Sodium Chloride 0.9%) 1,000 mls @ 999 mls/hr IV .Q1H1M ONE Stop: 11/08/18 19:19 Last Infusion: 11/08/18 19:55 Dose: Infused Documented by: Ceftriaxone Sodium (Rocephin 1000 Mg Er Piggyback) 1,000 mg in 100 mls @ 200 mls/hr IV ONCE ONE Stop: 11/08/18 20:28 Last Infusion: 11/08/18 20:47 Dose: Infused Documented by: Sodium Chloride (Sodium Chloride 0.9%) 1,000 mls @ 125 mls/hr IV .Q8H PRN PRN Reason: HYDRATION Stop: 12/08/18 19:58 Last Infusion: 11/08/18 23:11 Dose: 0 mls/hr Documented by: Sodium Chloride (Sodium Chloride 0.9%) 1,000 mls @ 125 mls/hr IV .Q8H PRN PRN Reason: HYDRATION Stop: 12/09/18 03:01 Last Infusion: 11/09/18 19:02 Dose: Infused Documented by: Sodium Chloride (Sodium Chloride 0.9%) 1,000 mls @ 200 mls/hr IV .Q5H ONE Stop: 11/09/18 02:59 Last Infusion: 11/09/18 04:32 Dose: Infused Documented by: Dextrose/Sodium Chloride (Dextrose 5%-0.45%Ns) 1,000 mls @ 125 mls/hr IV .Q8H PRN PRN Reason: HYDRATION Stop: 12/09/18 12:13 Last Infusion: 11/10/18 09:31 Dose: Infused Documented by: Potassium Chloride 10 meq/ (Dextrose/Sodium Chloride) 1,005 mls @ 75 mls/hr IV .[id number] [facility] Stop: 12/09/18 12:13 Last Infusion: 11/10/18 10:30 Dose: Infused Documented by: Potassium Chloride 20 meq/ (Dextrose/Water) 1,010 mls @ 75 mls/hr IV .[id number] [facility] Stop: 12/10/18 12:08 Last Admin: 11/10/18 19:44 Dose: 75 mls/hr Documented by: Lorazepam (Ativan) 1 mg IV ONCE ONE Stop: 11/08/18 17:18 Last Admin: 11/08/18 17:23 Dose: 1 mg Documented by: Lorazepam (Ativan) 1 mg IV ONCE ONE Stop: 11/08/18 17:43 Last Admin: 11/08/18 17:45 Dose: 1 mg Documented by: Lorazepam (Ativan) 1 mg IV ONCE ONE Stop: 11/08/18 18:04 Last Admin: 11/08/18 18:06 Dose: 1 mg Documented by: Lorazepam (Ativan) 2 mg IV Q2H PRN PRN Reason: Anxiety Stop: 12/08/18 22:31 Last Admin: 11/09/18 16:55 Dose: 2 mg Documented by: Lorazepam (Ativan) 2 mg IV ONCE ONE Stop: 11/09/18 14:39 Last Admin: 11/09/18 14:39 Dose: 2 mg Documented by: Lorazepam (Ativan) 3 mg IV Q2H PRN PRN Reason: Anxiety Stop: 12/08/18 22:31 Last Admin: 11/10/18 13:08 Dose: 3 mg Documented by: Ziprasidone (Geodon) 20 mg IM Q4H PRN PRN Reason: aggitation Stop: 12/10/18 10:30 Last Admin: 11/10/18 11:00 Dose: 20 mg Documented by: - Disposition Disposition: Short Term Hospital Inpatient Condition: Serious Discharge Date: 11/11/18 Discharge Time: 07:48
[2018-11-11] MEDS: ENOXAPARIN SODIUM 40 MG/0.4 ML SYRG SC SCH (10:03)
[2018-11-11 12:30] VITALS: BP 144/88
== END 2018-11-11 11:45 | disposition short-term general hospital (02) | DRG 917 ==
LOC: ER 16:54 → MS 19:44
PROVIDERS: ADMIT Internal Medicine; ATTEND Allergy & Immunology
DX: M62.82 Rhabdomyolysis; R40.2423 Glasgow coma scale score 9-12, at hospital admission; T43.621A Poisoning by amphetamines, accidental (unintentional), initial encounter; E87.6 Hypokalemia; R21 Rash and other nonspecific skin eruption; D72.825 Bandemia; J01.00 Acute maxillary sinusitis, unspecified; E87.0 Hyperosmolality and hypernatremia; F17.210 Nicotine dependence, cigarettes, uncomplicated; G92 Toxic encephalopathy; D64.9 Anemia, unspecified; F15.121 Other stimulant abuse with intoxication delirium; N17.9 Acute kidney failure, unspecified
CPT/HCPCS: 36415; 70450; 70553; 71010; 71045; 80048; 80053; 80076; 80307; 81001; 82550; 82945; 82947; 83605; 84145; 84155; 84157; 84484; 85025; 86140; 86592; 86618; 86803; 87040; 87070; 87086; 87205; 87389; 89051; 93005; 94760; 96361; 96374; 96375; 99283; A9576; G0480